=== PATIENT | female | born 1945 | race Caucasian/White ===

== ENCOUNTER 2017-09-06 09:20 | Outpatient (CLI) | payer MEDICARE, OTHER | END 2017-09-06 09:21 | disposition home or self-care (01) | LOC: BICMAMMO 09:20 | PROVIDERS: ATTEND Radiology Radiation Oncology | DX: Z08 Encounter for follow-up examination after completed treatment for malignant neoplasm (principal); Z85.3 Personal history of malignant neoplasm of breast | CPT/HCPCS: G0204; G0279; 77066 ==

== ENCOUNTER 2018-01-25 09:54 | Outpatient (CLI) | payer MEDICARE, OTHER | END 2018-01-25 09:55 | disposition home or self-care (01) | LOC: BICULT 09:54 | PROVIDERS: ATTEND Urology | DX: N39.41 Urge incontinence (principal) | CPT/HCPCS: 76770; 76856 ==

== ENCOUNTER 2018-10-09 11:04 | Outpatient (CLI) | payer MEDICARE, OTHER | END 2018-10-09 11:05 | disposition home or self-care (01) | LOC: BICMAMMO 11:04 | PROVIDERS: ATTEND Radiology Radiation Oncology | DX: Z12.31 Encounter for screening mammogram for malignant neoplasm of breast (principal); Z85.3 Personal history of malignant neoplasm of breast; Z86.000 Personal history of in-situ neoplasm of breast; Z80.3 Family history of malignant neoplasm of breast | CPT/HCPCS: 77063; 77067 ==

== ENCOUNTER 2018-11-26 08:45 | Outpatient (CLI) | payer MEDICARE, OTHER ==
[2018-11-26] MEDS ORDERED: Gadobenate Dimeglumine 529 MG/1 ML (20ML VIAL) ONE (10:30)
--- NOTE | 2018-11-26 11:52 | MRI ---
MRI Brain W WO Con: 11/26/2018 12:00 AM CLINICAL HISTORY: Brain tumor, benign, follow-up. COMPARISON: 04/02/2018 FINDINGS: Extra axial spaces: Redemonstration of lobular, circumscribed, avidly enhancing extra-axial mass over lying the right cerebral convexity, which measures 4.6 cm craniocaudal, 3 cm transverse, by 4.1 cm AP, grossly stable in volume. Mass demonstrates a broad dural base with an associated dural tail, com patible with meningioma. Smaller, dural based enhancing mass overlying the left parietotemporal convexity is grossly stable at 1.2 x 7 mm, consistent with a small meningioma.. Hemorrhage: None. Ventricular system: Normal in size and morphology for the patient's age. Basal cisterns: Normal. Cerebral parenchyma: Vasogenic edema of the right cerebral hemisphere is similar. There is microvascu lar ischemic disease again noted. Midline shift: Stable minimal leftward bowing of the septum pellucidum. Cerebellum: No acute findings Brainstem: Normal. Paranasal sinuses:Mucosal thickening and retention cyst formation IMPRESSION:Grossly stable extra-axial masses, bilaterally, indicative of meningiomas Transcribed Date/Time: 11/26/2018 12:39 PM
--- NOTE | 2019-01-13 13:19 | MRI ---
MRI CERVICAL SPINE NONCONTRAST: 01/13/2019 HISTORY: 73 year old female with cervical radiculopathy FINDINGS: Vertebral body heights are maintained. Alignment is normal. All of the images are degraded by patient motion. Moderate left-sided facet DJD at C7-T1. Disc space narrowing: Mild at C3-4, moderate at C4-5, and moderate to severe at C5-6 and C6-7 where there are Modic type I and Modic type II changes with multiple endplate irregularities. Broad-based disc-osteophytic bar complex is encroach upon the anterior aspect of the spinal canal at multiple levels. Uncinate process osteophytes encroach upo n neural foramina at multiple levels. Cervical spinal cord is normal in size and signal. C1-2: No central stenosis C2-3: Essentially normal C3-4: Mild to moderate central stenosis. Mild right neural foraminal stenosis. No left neural foramin al stenosis. C4-5: Moderate central stenosis. Severe bilateral neural foraminal stenosis. C5-6: Severe central spinal canal stenosis. Severe bilateral neural foraminal stenosis. C6-7: Moderate to severe central stenosis. Moderate to severe bilateral neural foraminal stenosis. C7-T1: Mild right neural foraminal stenosis. Moderate left neural foraminal stenosis. Mild central st enosis. IMPRESSION: Cervical spondylosis with multilevel degenerative disc disease, including moderately severe, multilev el central spinal canal stenosis, and multilevel neural foraminal stenosis, including severe.
== END 2018-11-26 08:46 | disposition home or self-care (01) ==
LOC: BICMRI 08:45
PROVIDERS: ATTEND Neurological Surgery
DX: M50.10 Cervical disc disorder with radiculopathy, unspecified cervical region (principal); D33.2 Benign neoplasm of brain, unspecified; M47.22 Other spondylosis with radiculopathy, cervical region; M48.02 Spinal stenosis, cervical region; G93.89 Other specified disorders of brain
CPT/HCPCS: 70553; 72141; 82565; A9577

== ENCOUNTER 2019-01-13 14:35 | Emergency (ER) | payer MEDICARE, OTHER ==
[2019-01-13 15:57] LABS: #Eosinphils 0.2 thou/uL (0.0-0.7); #Monocytes 1.2 thou/uL (0.11-0.59); %Basophils 0.1 % (0.0-1.0); %Eosinophils 1.9 % (0.0-10.0); %Lymphocytes 7.2 % (21.0-51.0); %Monocytes 9.2 % (0.0-10.0); %Neutrophils 81.7 % (42.0-75.0); Hemoglobin 14.2 g/dL (12.0-16.0); Mean Corpuscular HGB CONC 32.9 g/dL (32.0-36.0); Mean Corpuscular Hemoglobin 29.9 pg (27.0-31.0); Mean Corpuscular Volume 90.9 fL (78.0-98.0); Mean Platelet Volume 8.9 fL (7.4-10.4); Platelet Count 174 thou/uL (130-400); RBC Distribution Width 13.7 % (11.5-14.5); Red Blood Cell (RBC) Count 4.76 mill/uL (4.20-5.40); White Blood Cell (WBC) Count 13.4 thou/uL (4.8-10.8)
--- NOTE | 2019-01-13 16:15 | ULT ---
LEFT LOWER EXTREMITY VENOUS DOPPLER ULTRASOUND EVALUATION: HISTORY: Left lower extremity pain and swelling and redness. TECHNIQUE: Multiple longitudinal and transverse images of the left lower extremity venous systems obtained using multi hertz linear array transducer. Real-time, color flow and spectral waveform Doppler analysis is used to evaluate the left lower extremity. FINDINGS: Images demonstrates no evidence of acute or old clot seen in the left common femoral, superficial fem oral, femoral profunda, popliteal or posterior tibial veins. The left greater saphenous vein is also patent. IMPRESSION: No evidence of left lower extremity deep venous thrombosis. Transcribed Date/Time: 01/13/2019 4:20 PM
[2019-01-13 16:19] LABS: ALT (SGPT) 17 U/L (8-55); AST (SGOT) 7 U/L (5-34); Alkaline Phosphatase 174 U/L (40-150); Anion Gap 12 mmol/L (10-20); BUN (Urea Nitrogen) 26 mg/dL (9.8-20.1); Bilirubin, Total 0.7 mg/dL (0.2-1.2); Calc. Creatinine Clearance 0 mL/min (70-130); Carbon Dioxide 26 mmol/L (23-31); Chloride 99 mmol/L (98-107); Estimated GFR-MDRD 56; Globulin 2.9 g/dL (2.4-3.5); Glucose 292 mg/dL (83-110); Protein, Total 5.9 g/dL (6.0-8.3); Sodium 134 mmol/L (136-145)
[2019-01-13 16:29] LABS: Potassium 2.9 mmol/L (3.5-5.1)
[2019-01-13] MEDS ORDERED: Potassium Chloride 20 MEQ TAB ONE (17:59)
== END 2019-01-13 18:18 | disposition home or self-care (01) ==
LOC: ERS 14:35
DX: L03.116 Cellulitis of left lower limb (principal); E87.6 Hypokalemia
CPT/HCPCS: 36415; 80053; 85025; 93005

== ENCOUNTER 2019-01-16 16:16 | Inpatient (IN) | payer MEDICARE, OTHER ==
[2019-01-16 17:58] VITALS: BMI 45.7
[2019-01-16] MEDS ORDERED: Dextrose 50% Abboject 50 ML SYRINGE IVP PRN (18:29)
[2019-01-16] MEDS ORDERED: Dextrose 5% in Water 1,000 ML IV PRN (18:29)
[2019-01-16] MEDS ORDERED: TRULICITY SC SCH (18:45)
[2019-01-16] MEDS: Piperacillin/Tazobactam 3.375 GM in Sodium Chloride 0.9% 100 ML IVPB SCH (19:30)
[2019-01-16 20:52] LABS: Band 13 % (5-11); Eosinophils 3 % (0-10); Hemoglobin 13.9 g/dL (12.0-16.0); Lymphocytes 7 % (21-51); MDiff Complete? YES; Mean Corpuscular Hemoglobin 30.5 pg (27.0-31.0); Mean Corpuscular Volume 89.7 fL (78.0-98.0); Mean Platelet Volume 9.5 fL (7.4-10.4); Monocytes 6 % (0-10); Myelocyte 2 % (0-0); Neutrophil 69 % (42-75); Platelet Count 158 thou/uL (130-400); RBC Distribution Width 13.6 % (11.5-14.5); Red Blood Cell (RBC) Count 4.54 mill/uL (4.20-5.40); White Blood Cell (WBC) Count 17.8 thou/uL (4.8-10.8)
[2019-01-16 20:54] LABS: Lactic Acid 2.2 mmol/L (0.5-2.2)
[2019-01-16 20:58] LABS: ALT (SGPT) 10 U/L (8-55); AST (SGOT) 6 U/L (5-34); Albumin 2.6 g/dL (3.4-4.8); Alkaline Phosphatase 190 U/L (40-150); Anion Gap 14 mmol/L (10-20); BUN (Urea Nitrogen) 25 mg/dL (9.8-20.1); Bilirubin, Total 0.7 mg/dL (0.2-1.2); Calc. Creatinine Clearance 92 mL/min (70-130); Calcium 8.5 mg/dL (7.8-10.44); Carbon Dioxide 23 mmol/L (23-31); Chloride 100 mmol/L (98-107); Estimated GFR-MDRD 61; Globulin 2.9 g/dL (2.4-3.5); Glucose 283 mg/dL (83-110); Potassium 3.9 mmol/L (3.5-5.1); Protein, Total 5.5 g/dL (6.0-8.3); Sodium 133 mmol/L (136-145)
[2019-01-16] MEDS: Vancomycin HCl 1.5 GM in Sodium Chloride 0.9% 250 ML 300 ML IVPB SCH (21:42)
[2019-01-16] MEDS: Insulin Regular 300 UNITS/3 ML VIAL SC PRN (21:43)
--- NOTE | 2019-01-16 23:20 | ULT ---
EXAM: Left lower extremity venous Doppler HISTORY: left lower extremity edema and pain FINDINGS: Grayscale, color-flow, Doppler evaluation, spectral analysis of the left lower extremity venous struc tures is performed with 2-D imaging. The left common femoral, superficial femoral, popliteal, posterior tibial, proximal greater saphenous and profunda femoral veins are imaged. The distal left lower extremity superficial femoral vein as well as popliteal veins are unable to be visualized on grayscale imaging which limits evaluation for nonocclusive DVT. There is flow seen within the distal left lower extremity superficial femoral vein as well as the popliteal vein. There is otherwise normal luminal compressibility, flow, and augmentation in the visualized deep veno us structures of the left lower extremity. Subcutaneous edema is present. IMPRESSION: Limited evaluation of the distal left superficial femoral vein as well as popliteal vein on grayscale imaging which limits evaluation for nonocclusive thrombus, but there is no evidence of occlusive thrombus at these levels given presence of flow. There is otherwise no evidence of a DVT involving th e remaining visualized deep venous structures left lower extremity.
--- NOTE | 2019-01-17 01:07 | HP ---
CHIEF COMPLAINT: Cellulitis of left leg. HISTORY OF PRESENT ILLNESS: This is a 73-year-old female, who presented today for a left lower leg cellulitis. The patient initially denied injury, though she reports she fell out of bed on Sunday and states that evening the swelling started in the lower leg. She went to [facility] ER for rule out DVT. DVT was negative and placed on clindamycin for cellulitis. She states over the past few days, the clindamycin has not been working and reports the pain to the leg has increased with elevated blood sugars and swelling. She presented to the office this afternoon and has failed outpatient therapy, therefore requiring admission. PAST MEDICAL HISTORY: Includes uncontrolled type 2 diabetes with noncompliance, history of urinary tract infections with urinary incontinence, that is being controlled by another physician. She has obesity with hypertension, high cholesterol, and vitamin D deficiency. PAST SURGICAL HISTORY: Unknown. SOCIAL HISTORY: The patient lives by herself out in [place]. 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. She denies ever smoking or drinking. ALLERGIES: THE PATIENT HAS NO KNOWN DRUG ALLERGIES AND NO KNOWN FOOD ALLERGIES. MEDICATIONS: The patient takes Myrbetriq 50 mg oral tablet extended release once a day. She takes oxybutynin 15 mg oral tablet extended release once a day. She takes Januvia 100 mg one tablet daily for her diabetes. She takes metoprolol extended-release 100 mg once a day for blood pressure. She takes one tablet of metformin 1000 mg by mouth daily. She takes one vitamin D capsule weekly and she also does Trulicity every Sunday 0.75 mg subcutaneously. REVIEW OF SYSTEMS: CONSTITUTIONAL: Includes generalized fatigue and body aches with left lower leg pain. HEENT: Had no complaints. RESPIRATORY: Denied any complaints. CARDIOVASCULAR: Denied any complaints. GI: Denied any abdominal pain, nausea, or vomiting. : She does have continued urinary problems with urinary frequency, it is controlled on medication. NEUROMUSCULAR: She complains of numbness and swelling to the left lower leg where the cellulitis is present. Denies any dizziness or fainting. SKIN: She has the cellulitis noted from the thigh down into the foot intermittently with increasing swelling over the past week. Denies any anxiety or depression. PHYSICAL EXAMINATION: VITAL SIGNS: The patient is 56 inches, she is 223 pounds. Her BMI is 50. Blood pressure present today was 100/80, temperature is 98.4 degrees Fahrenheit, pulse was 80 beats per minute, and she was 98% on room air. GENERAL: Pleasant, obese. She was in pain with ambulation. She was well dressed. HEENT: Eyes are PERRLA. Her tympanic membranes are clear. Her pharynx was normal. NECK: There was no lymphadenopathy. LUNGS: Clear bilaterally. Normal S1, S2 with no murmurs. Rhythm is regular. BREAST: Deferred. EXTREMITIES: Warm and well perfused. Cap refill is less than 2. ABDOMEN: Positive bowel sounds. Soft, nondistended, nontender. MUSCULOSKELETAL: Gait was assisted with her cane. EXTREMITIES: The left lower foot presented with erythema and swelling that extended upward above the knee detention above the thigh and significant tenderness to the area. The erythema around the knee extended approximately 8 to 10 inches in diameter, was warm to touch with swelling. Pedal pulse was intact. Edema was noted to left lower leg +3, the right leg was +1. SKIN: Very tight to the left lower extremity. The skin to the knee had an orange peel texture. MENTAL EXAMINATION: The patient was alert and oriented to person, place, and time. She demonstrated good judgment. Her gait was intact, steady with her cane. Cranial nerves were intact. Sensory was intact and noted to the extremities. The patient denies any abnormal behaviors during the course of the cellulitis or any problems with forgetfulness. LABORATORY DATA: Lab work and x-rays are pending at the time of dictation. ASSESSMENT: 1. Left lower leg cellulitis with failed outpatient treatment. 2. Type 2 diabetes with noncompliance. 3. Hypertension. 4. High cholesterol. 5. Morbid obesity. 6. Noncompliance to medication regimen. PLAN: Plan of care includes labs. DVT, rule out ultrasound, IV for antibiotics , pain management if needed. Wound care consult. Diabetic diet. Ambulation as needed in room. Glucose checks before meals and at bedtime with sliding scale. Serial re-evaluation. Job ID: [id number] [id number]
[2019-01-17] MEDS: Piperacillin/Tazobactam 3.375 GM in Sodium Chloride 0.9% 100 ML IVPB SCH ×5 (01:51→23:14)
[2019-01-17 05:57] LABS: Bilirubin Negative (Negative); Blood, Urine Negative (Negative); Clarity CLOUDY (Clear); Glucose, Urine (Dipstick) Negative (Negative); Leukocyte Negative (Negative); Nitrite Negative (Negative); Protein, Urine (Dipstick) Negative (Neg-Trace)
[2019-01-17 05:58] LABS: Bacteria/HPF None Seen HPF (None Seen); Hyaline Casts/LPF 0-3 HYALINE CAST LPF (0-3 Hyaline); Pathc Cast-AUWi Flag 0.68 (0-2.49); WBC/HPF 0-3 HPF (0-3)
[2019-01-17 06:21] LABS: Yeast-AUWi Flag 74.2 (0-25.0)
[2019-01-17 06:23] LABS: RBC/HPF 0-3 HPF (0-3); Yeast-All Forms None Seen HPF (None Seen)
[2019-01-17] MEDS: Acetaminophen 500 MG TAB PO PRN (06:26)
[2019-01-17] MEDS: Insulin Regular 300 UNITS/3 ML VIAL SC PRN ×4 (06:26→20:51)
[2019-01-17] MEDS: metFORMIN 500 MG TAB PO SCH (09:24)
[2019-01-17] MEDS: Alogliptin 25 MG TAB PO SCH (09:25)
[2019-01-17] MEDS: Vancomycin HCl 1.5 GM in Sodium Chloride 0.9% 250 ML 300 ML IVPB SCH ×2 (09:25→19:55)
[2019-01-17] MEDS: TRULICITY SC SCH (09:26)
[2019-01-17] MEDS: Oxybutynin ER 5 MG TAB PO SCH (09:38)
[2019-01-18] MEDS: Piperacillin/Tazobactam 3.375 GM in Sodium Chloride 0.9% 100 ML IVPB SCH ×4 (05:20→23:33)
[2019-01-18] MEDS: Acetaminophen 500 MG TAB PO PRN (06:22)
[2019-01-18] MEDS: Insulin Regular 300 UNITS/3 ML VIAL SC PRN ×2 (06:23→11:39)
[2019-01-18 07:06] LABS: #Basophils 0.1 thou/uL (0.0-0.2); #Eosinphils 0.2 thou/uL (0.0-0.7); #Lymphocytes 1.4 thou/uL (1.20-3.40); #Monocytes 1.1 thou/uL (0.11-0.59); #Neutrophils 10.7 thou/uL (1.40-6.50); %Basophils 0.4 % (0.0-1.0); %Eosinophils 1.4 % (0.0-10.0); %Lymphocytes 10.2 % (21.0-51.0); %Monocytes 8.1 % (0.0-10.0); Hemoglobin 13.6 g/dL (12.0-16.0); Mean Corpuscular HGB CONC 33.1 g/dL (32.0-36.0); Mean Corpuscular Hemoglobin 29.9 pg (27.0-31.0); Mean Corpuscular Volume 90.5 fL (78.0-98.0); Mean Platelet Volume 8.8 fL (7.4-10.4); Platelet Count 144 thou/uL (130-400); RBC Distribution Width 13.7 % (11.5-14.5); Red Blood Cell (RBC) Count 4.54 mill/uL (4.20-5.40); White Blood Cell (WBC) Count 13.4 thou/uL (4.8-10.8)
[2019-01-18 07:23] LABS: Vancomycin, Trough 19.6 ug/mL
[2019-01-18] MEDS: Vancomycin HCl 1.5 GM in Sodium Chloride 0.9% 250 ML 300 ML IVPB SCH ×2 (08:35→20:32)
[2019-01-18] MEDS: metFORMIN 500 MG TAB PO SCH (08:35)
[2019-01-18] MEDS: Oxybutynin ER 5 MG TAB PO SCH (08:36)
[2019-01-18] MEDS: Alogliptin 25 MG TAB PO SCH (08:36)
[2019-01-19] MEDS: Piperacillin/Tazobactam 3.375 GM in Sodium Chloride 0.9% 100 ML IVPB SCH ×3 (06:22→17:24)
[2019-01-19 06:27] LABS: Anion Gap 11 mmol/L (10-20); BUN (Urea Nitrogen) 11 mg/dL (9.8-20.1); Calc. Creatinine Clearance 102 mL/min (70-130); Calcium 8.1 mg/dL (7.8-10.44); Carbon Dioxide 25 mmol/L (23-31); Chloride 105 mmol/L (98-107); Estimated GFR-MDRD 68; Glucose 132 mg/dL (83-110); Potassium 4.1 mmol/L (3.5-5.1); Sodium 137 mmol/L (136-145)
[2019-01-19 06:58] LABS: Band 27 % (5-11); Hemoglobin 13.1 g/dL (12.0-16.0); Lymphocytes 10 % (21-51); MDiff Complete? YES; Mean Corpuscular HGB CONC 33.3 g/dL (32.0-36.0); Mean Corpuscular Hemoglobin 29.8 pg (27.0-31.0); Mean Corpuscular Volume 89.3 fL (78.0-98.0); Mean Platelet Volume 8.8 fL (7.4-10.4); Monocytes 5 % (0-10); Neutrophil 58 % (42-75); Platelet Count 113 thou/uL (130-400); Platelet Morphology Comment Appears Decreased; RBC Distribution Width 13.7 % (11.5-14.5); Red Blood Cell (RBC) Count 4.42 mill/uL (4.20-5.40); White Blood Cell (WBC) Count 12.4 thou/uL (4.8-10.8)
[2019-01-19] MEDS: metFORMIN 500 MG TAB PO SCH (08:50)
[2019-01-19] MEDS: Oxybutynin ER 5 MG TAB PO SCH (08:50)
[2019-01-19] MEDS: Alogliptin 25 MG TAB PO SCH (08:50)
[2019-01-19] MEDS: Vancomycin HCl 1.5 GM in Sodium Chloride 0.9% 250 ML 300 ML IVPB SCH ×2 (08:51→19:31)
[2019-01-19] MEDS: Clindamycin/D5W 600 MG in Premix Bag 1 BAG IVPB SCH ×3 (12:15→23:25)
[2019-01-19] MEDS: Insulin Regular 300 UNITS/3 ML VIAL SC PRN ×3 (12:17→20:32)
[2019-01-19] MEDS: HYDROcodone/Acetaminophen 5/325 mg Tablet PO PRN (16:25)
[2019-01-19 19:26] LABS: Vancomycin, Trough 31.3 ug/mL
[2019-01-20] MEDS: Piperacillin/Tazobactam 3.375 GM in Sodium Chloride 0.9% 100 ML IVPB SCH ×5 (00:05→23:46)
[2019-01-20] MEDS: Clindamycin/D5W 600 MG in Premix Bag 1 BAG IVPB SCH ×4 (05:07→23:13)
[2019-01-20 05:35] LABS: #Eosinphils 0.1 thou/uL (0.0-0.7); #Lymphocytes 1.3 thou/uL (1.20-3.40); #Monocytes 0.8 thou/uL (0.11-0.59); %Basophils 0.1 % (0.0-1.0); %Eosinophils 1.4 % (0.0-10.0); %Monocytes 8.1 % (0.0-10.0); %Neutrophils 77.4 % (42.0-75.0); Mean Corpuscular HGB CONC 34.3 g/dL (32.0-36.0); Mean Corpuscular Hemoglobin 30.7 pg (27.0-31.0); Mean Corpuscular Volume 89.5 fL (78.0-98.0); Mean Platelet Volume 9.4 fL (7.4-10.4); Platelet Count 92 thou/uL (130-400); RBC Distribution Width 13.8 % (11.5-14.5); Red Blood Cell (RBC) Count 4.25 mill/uL (4.20-5.40); White Blood Cell (WBC) Count 10.3 thou/uL (4.8-10.8)
[2019-01-20 07:30] LABS: Vancomycin, Random 20.7 ug/mL (See Comment)
[2019-01-20] MEDS ORDERED: Vancomycin HCl 1.5 GM in Sodium Chloride 0.9% 250 ML 300 ML IVPB SCH ×2 (08:00→10:30)
[2019-01-20] MEDS: Alogliptin 25 MG TAB PO SCH (08:33)
[2019-01-20] MEDS: Oxybutynin ER 5 MG TAB PO SCH (08:33)
[2019-01-20] MEDS: metFORMIN 500 MG TAB PO SCH (08:33)
[2019-01-20] MEDS: Enoxaparin Sodium 40 MG/0.4 ML SYRINGE SC SCH (08:34)
[2019-01-20] MEDS ORDERED: ISOVUE-370 76%-LOCM 1 ML ONE (09:52)
--- NOTE | 2019-01-20 11:59 | CT ---
CT OF THE LEFT KNEE WITH IV CONTRAST: DATE: 05/31/2019. PROVIDED CLINICAL HISTORY: Cellulitis. FINDINGS: There is extensive reticulation of the subcutaneous adipose layer circumferentially about the distal thigh, knee, and visualized proximal foreleg. There is a large rim-enhancing fluid collection present within the subcutaneous adipose layer at the anteromedial aspect of the distal thigh, knee, and proximal foreleg. This measures approximately 14. 4 cm in craniocaudal dimension and approximately 5.3 x 11.9 cm in greatest transverse dimension. The re is an additional fluid collection present at the medial aspect of the proximal foreleg measuring a bout 2.5 cm that does not appear to communicate with the larger fluid collection. This is located ap proximately 6 cm inferior to the knee joint bimedially. The amount of fluid within the knee joint appears physiologic. There is no evidence for fracture or other acute osseous abnormality. The regional major vascular structures appear unremarkable. Region al muscular density appears normal. There is no evidence for density alteration within the intramusc ular fascial planes. There is no evidence for soft tissue gas. IMPRESSION: 1. Diffuse reticulation of the regional subcutaneous adipose that are compatible with the provided c linical history of cellulitis. 2. Large rim enhancing fluid collection at the anterior aspect of the knee, compatible with abscess in the appropriate clinical context. Additional smaller fluid collection at the medial aspect of the proximal foreleg as above. POS: OFF
[2019-01-20] MEDS: Insulin Regular 300 UNITS/3 ML VIAL SC PRN (12:07)
[2019-01-20] MEDS: Vancomycin HCl 1.5 GM in Sodium Chloride 0.9% 250 ML 300 ML IVPB SCH (19:53)
[2019-01-21] MEDS: Clindamycin/D5W 600 MG in Premix Bag 1 BAG IVPB SCH ×4 (05:29→23:30)
[2019-01-21] MEDS: Piperacillin/Tazobactam 3.375 GM in Sodium Chloride 0.9% 100 ML IVPB SCH ×3 (06:15→17:58)
[2019-01-21 06:22] LABS: #Eosinphils 0.3 thou/uL (0.0-0.7); #Lymphocytes 1.1 thou/uL (1.20-3.40); %Basophils 0.3 % (0.0-1.0); %Eosinophils 2.7 % (0.0-10.0); %Lymphocytes 12.1 % (21.0-51.0); %Monocytes 10.2 % (0.0-10.0); %Neutrophils 74.6 % (42.0-75.0); Hemoglobin 12.2 g/dL (12.0-16.0); Mean Corpuscular Hemoglobin 29.8 pg (27.0-31.0); Mean Corpuscular Volume 90.3 fL (78.0-98.0); Mean Platelet Volume 9.4 fL (7.4-10.4); Platelet Count 86 thou/uL (130-400); RBC Distribution Width 13.8 % (11.5-14.5); Red Blood Cell (RBC) Count 4.11 mill/uL (4.20-5.40); White Blood Cell (WBC) Count 9.4 thou/uL (4.8-10.8)
[2019-01-21 06:31] LABS: ALT (SGPT) 10 U/L (8-55); AST (SGOT) 10 U/L (5-34); Albumin 2.3 g/dL (3.4-4.8); Alkaline Phosphatase 144 U/L (40-150); Anion Gap 10 mmol/L (10-20); BUN (Urea Nitrogen) 10 mg/dL (9.8-20.1); Bilirubin, Total 0.5 mg/dL (0.2-1.2); Calc. Creatinine Clearance 81 mL/min (70-130); Calcium 7.8 mg/dL (7.8-10.44); Carbon Dioxide 24 mmol/L (23-31); Chloride 107 mmol/L (98-107); Estimated GFR-MDRD 52; Globulin 2.8 g/dL (2.4-3.5); Glucose 134 mg/dL (83-110); Potassium 3.9 mmol/L (3.5-5.1); Protein, Total 5.1 g/dL (6.0-8.3); Sodium 137 mmol/L (136-145)
[2019-01-21] MEDS: metFORMIN 500 MG TAB PO SCH (08:35)
[2019-01-21] MEDS: Alogliptin 25 MG TAB PO SCH (08:35)
[2019-01-21] MEDS: Enoxaparin Sodium 40 MG/0.4 ML SYRINGE SC SCH (08:35)
[2019-01-21] MEDS: Oxybutynin ER 5 MG TAB PO SCH (10:02)
[2019-01-21] MEDS: Insulin Regular 300 UNITS/3 ML VIAL SC PRN (12:34)
--- NOTE | 2019-01-21 16:17 | CON ---
DATE OF CONSULTATION: 01/21/2019 This is Patricia Cabrera PA-C dictating a report for Giovany Martinez MD. CONSULTING PHYSICIAN: Giovany Martinez MD REASON FOR CONSULTATION: Left knee infection. HISTORY OF PRESENT ILLNESS: This is a 73-year-old female, who was admitted to the hospital on January 16, 2019 for left lower leg cellulitis. She has been on IV antibiotics up until this point. Per the patient's history at bedside, she states that she did fall several weeks ago, landing on her knee and states that the swelling started. She initially went to the [facility] ER for rule out DVT. She was placed on clindamycin for cellulitis. Unfortunately, throughout her last 5 days in the hospital this has not resolved with IV antibiotics and we have been consulted for this reason. She denies any fever or chills. She denies history of prior knee surgeries or knee injections. PAST MEDICAL HISTORY: Includes type 2 diabetes, urinary tract infections with urinary incontinence, hypertension, hyperlipidemia, vitamin D deficiency. PAST SURGICAL HISTORY: Unknown. SOCIAL HISTORY: The patient lives alone. She is an independent ambulator. She works part-time. Denies history of smoking or drinking. FAMILY HISTORY: Reviewed and noncontributory. REVIEW OF SYSTEMS: A 10-point review of systems conducted and otherwise negative, except for stated above. PHYSICAL EXAMINATION: VITAL SIGNS: Temperature of 97.9, pulse of 76, respiratory rate of 22, O2 saturation of 97% on 2 L nasal cannula, blood pressure of 120/73. GENERAL: The patient is awake and alert. She is sitting up in bed. She is hard of hearing, but is pleasant and cooperative with exam today. HEENT: Head is normocephalic and atraumatic. NECK: Supple. Trachea midline. HEART: Regular rate and rhythm. RESPIRATORY: Clear to auscultation bilaterally. Nonlabored. EXTREMITIES: The left lower extremity is evaluated. There is a large amount of erythema overlying the anterior surface of the knee. There is also a large amount of prepatellar swelling. This is fluctuant. The patient is able to flex and extend at the knee joint. Distal neurovascular status is intact. Remainder of extremities also evaluated and no other acute findings were visualized. LABORATORY DATA: Reviewed including CBC from today, 01/21, shows a white blood cell count of 9.4, hemoglobin of 12.2, hematocrit of 37.1, and a platelet count of 86. IMAGING STUDIES: CT scan reviewed with Dr. Martinez as well as myself shows evidence of a large rim enhancing fluid collection in the anterior aspect of the knee compatible with a large abscess. There is also subcutaneous adipose that is compatible with history of cellulitis. ASSESSMENT: Left knee prepatellar septic bursitis. PLAN: At this time, the patient has been n.p.o. since noon. We would like to take her to the operating room in order to drain this fluid collection from her knee. We will continue her n.p.o. status and book her for the OR this evening. Following Surgery, we will likely pack her wound and have her seen by Wound Care to further address wound care concerns. She will continue her IV antibiotic regimen. We will plan for cultures in the operating room to further identify an organism and treat. We have discussed this plan of care along with risks and benefits of surgical procedure. She verbalized understanding and is amenable to this plan of care. Job ID: [id number]
[2019-01-21] MEDS ORDERED: Neomycin-Polymyxin 1 ML AMP ONE (17:23)
[2019-01-21] MEDS ORDERED: Fentanyl 100 MCG/2 ML VIAL ONE (18:06)
[2019-01-21] MEDS ORDERED: Promethazine HCl 25 MG/ML VIAL SLOW IVP PRN (20:15)
[2019-01-21] MEDS ORDERED: Ondansetron HCl/PF 4 MG/2 ML Vial IVP PRN (20:15)
[2019-01-21] MEDS ORDERED: Promethazine HCl 25 MG/ML VIAL IM PRN (20:15)
[2019-01-21] MEDS: Vancomycin HCl 1.5 GM in Sodium Chloride 0.9% 250 ML 300 ML IVPB SCH (20:56)
[2019-01-21] MEDS: HYDROcodone/Acetaminophen 5/325 mg Tablet PO PRN (22:26)
[2019-01-22] MEDS: Piperacillin/Tazobactam 3.375 GM in Sodium Chloride 0.9% 100 ML IVPB SCH ×4 (00:17→18:22)
[2019-01-22] MEDS: Clindamycin/D5W 600 MG in Premix Bag 1 BAG IVPB SCH ×3 (05:30→17:10)
[2019-01-22] MEDS: Enoxaparin Sodium 40 MG/0.4 ML SYRINGE SC SCH (08:46)
[2019-01-22] MEDS: Alogliptin 25 MG TAB PO SCH (08:48)
[2019-01-22] MEDS: metFORMIN 500 MG TAB PO SCH (08:48)
[2019-01-22] MEDS: Oxybutynin ER 5 MG TAB PO SCH (09:10)
[2019-01-22] MEDS: HYDROcodone/Acetaminophen 5/325 mg Tablet PO PRN (09:40)
[2019-01-22] MEDS: Insulin Regular 300 UNITS/3 ML VIAL SC PRN (11:27)
[2019-01-22] MEDS ORDERED: Aspirin Chewable 81 MG TAB PO SCH (14:45)
[2019-01-22 20:56] LABS: Vancomycin, Trough 17.9 ug/mL
[2019-01-22] MEDS: Vancomycin HCl 1.5 GM in Sodium Chloride 0.9% 250 ML 300 ML IVPB SCH (21:02)
--- NOTE | 2019-01-22 21:55 | CON ---
DATE OF CONSULTATION: 01/22/2019 REASON FOR CONSULTATION: Left prepatellar bursitis. HISTORY OF PRESENT ILLNESS: A 73-year-old with history of type 2 diabetes, prior UTIs, hypertension, who apparently sustained a fall a few months ago and injured her left prepatellar area. She developed an area of hematoma there, it got better and then more recently started getting painful again and swollen, went to the emergency room. DVT workup was negative. She was started on clindamycin orally. It did not help and she came back to see her doctor, Dr. Fields, was admitted to the hospital. There was a quite obvious inflammatory process in the prepatellar area. CT scan showed findings consistent with prepatellar bursitis with surrounding cellulitis. She underwent surgical debridement, has a negative pressure device in place. She has significant hearing impairment. Denies headaches, visual symptoms, sore throat, odynophagia, or dysphagia. No back pain. No dyspnea or cough. No chest pain. No abdominal pain or diarrhea. No genitourinary symptoms. No other joint symptoms. PAST MEDICAL HISTORY: Obesity, type 2 diabetes, UTIs, urinary incontinence, hypertension, and hyperlipidemia. PAST SURGICAL HISTORY: Negative. SOCIAL HISTORY: Lives in [place] by herself. 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 Does not smoke cigarettes. No drug use. No family members around. ALLERGIES: NONE. CURRENT MEDICATIONS: 1. Tylenol. 2. [place]. 3. Alogliptin. 4. Aspirin. 5. Clindamycin. 6. Insulin. 7. Metoprolol. 8. Zosyn. 9. Vancomycin. PHYSICAL EXAMINATION: VITAL SIGNS: Temperature max 98.4, blood pressure 130/70, pulse 76, respirations 20, O2 saturation 95. SKIN: Shows the left prepatellar region with a negative pressure dressing and the erythema has markedly improved. There is an incision with wound with fresh red tissue at the base, measures 2 x 3 cm. No lymphadenopathy. HEENT: Noncontributory. NECK: Supple. LUNGS: Symmetric, clear breath sounds. HEART: S1, S2. Regular rate without murmurs. ABDOMEN: Soft, not distended or tender. No ascites. No bladder distention. Voiding in the toilet. EXTREMITIES: Pulses are 1+ in dorsalis pedis. Evidence of stasis dermatitis and venous insufficiency. NEUROLOGIC: Nonfocal including cognitive function. She has quite pronounced hearing impairment. LABORATORY DATA: White cell count 17, down to 9.4, hemoglobin 12, platelets 86,000. Chemistry; protein 5.1, albumin 2.3. Urinalysis was fairly normal. Vancomycin trough was 20, the last one checked. Gram stain from the left prepatellar region with no organisms seen. ASSESSMENT: Previous injury to the left prepatellar area in the setting of type 2 diabetes, now prepatellar bursitis status post I and D with a negative pressure wound dressing. DISCUSSION: The usual pathogen is Staphylococcus aureus including possibility of MRSA streptococci including group B Streptococcus, possible as well and less commonly gram-negative rods. After I and D, we will wait on the identification of susceptibility profile and then hopefully transition to oral antimicrobial therapy for discharge planning. Job ID: [id number]
--- NOTE | 2019-01-22 22:47 | OP ---
DATE OF PROCEDURE: 01/21/2019 PREOPERATIVE DIAGNOSIS: Septic prepatellar bursitis, left knee. POSTOPERATIVE DIAGNOSIS: Septic prepatellar bursitis, left knee. PROCEDURE PERFORMED: Incision and drainage of left septic prepatellar bursitis. ANESTHESIA: General. TOURNIQUET TIME: 11 minutes at 300 mmHg. IMPLANTS: None. DRAINS: None. SPECIMEN: Swab sent for Gram stain, culture, and sensitivity. COMPLICATIONS: None. OUTCOME: Satisfactory incision and drainage of septic prepatellar bursa. INDICATIONS FOR PROCEDURE: The patient is a 73-year-old lady who was admitted to the hospital on January 16, 2019, for a left knee and lower leg cellulitis. The patient has been receiving IV antibiotics, but continues to have pain in the knee and swelling. She states that several weeks prior to admission, she fell and landed on the point of her knee and this started the swelling. She has been on clindamycin and then over the last 5 days was started on IV antibiotics as well. Orthopedic consultation requested due to the ongoing knee pain. Evaluation shows an obviously septic prepatellar bursitis. A previously done CT scan also shows fluid collection in this prepatellar bursa. The patient now to undergo incision and drainage. Informed consent has been obtained, I believe all questions answered. DESCRIPTION OF PROCEDURE: After the induction of general anesthesia, the patient was positioned supine on the OR table. Then, a sterile prep and drape was performed of the left lower extremity. Next, a vertical incision was made just superior to the patella. Once the skin was incised, copious volumes of purulent material came out from the prepatellar bursa. This was under pressure. Once fully drained, the incision was further lengthened to allow for inspection of the bursa. A curette was used to remove the lining of the bursa and remove any dysvascular tissue. Once performed, 5 L of normal saline with Pulsavac was irrigated through the prepatellar bursa. At the completion of this, the wound was packed open due to the severity of the infection, this with a Kerlix roll. A Kerlix and Red wrap dressing applied to the knee and then the patient transferred to recovery room in stable condition. It should be noted that prior to the skin incision, the limb was elevated and then tourniquet inflated to 300 mmHg. The tourniquet was let down at the end of dressing with a total time of 11 minutes. Job ID: [id number]
[2019-01-23] MEDS: Piperacillin/Tazobactam 3.375 GM in Sodium Chloride 0.9% 100 ML IVPB SCH ×4 (00:47→20:05)
[2019-01-23] MEDS: Clindamycin/D5W 600 MG in Premix Bag 1 BAG IVPB SCH ×4 (00:53→18:16)
[2019-01-23 06:22] LABS: #Eosinphils 0.4 thou/uL (0.0-0.7); #Lymphocytes 1.8 thou/uL (1.20-3.40); #Neutrophils 5.8 thou/uL (1.40-6.50); %Basophils 0.3 % (0.0-1.0); %Eosinophils 4.1 % (0.0-10.0); %Lymphocytes 20.5 % (21.0-51.0); %Neutrophils 64.1 % (42.0-75.0); Hemoglobin 11.9 g/dL (12.0-16.0); Mean Corpuscular HGB CONC 34.2 g/dL (32.0-36.0); Mean Corpuscular Hemoglobin 30.9 pg (27.0-31.0); Mean Corpuscular Volume 90.4 fL (78.0-98.0); Mean Platelet Volume 8.4 fL (7.4-10.4); Platelet Count 111 thou/uL (130-400); Red Blood Cell (RBC) Count 3.85 mill/uL (4.20-5.40)
[2019-01-23 06:38] LABS: Anion Gap 9 mmol/L (10-20); BUN (Urea Nitrogen) 9 mg/dL (9.8-20.1); Calc. Creatinine Clearance 77 mL/min (70-130); Calcium 7.7 mg/dL (7.8-10.44); Carbon Dioxide 25 mmol/L (23-31); Chloride 109 mmol/L (98-107); Estimated GFR-MDRD 49; Glucose 106 mg/dL (83-110); Potassium 3.9 mmol/L (3.5-5.1); Sodium 139 mmol/L (136-145)
[2019-01-23] MEDS: metFORMIN 500 MG TAB PO SCH (08:54)
[2019-01-23] MEDS: Alogliptin 25 MG TAB PO SCH (08:54)
[2019-01-23] MEDS: Aspirin Chewable 81 MG TAB PO SCH (08:55)
[2019-01-23] MEDS: Enoxaparin Sodium 40 MG/0.4 ML SYRINGE SC SCH (08:56)
[2019-01-23] MEDS: Oxybutynin ER 5 MG TAB PO SCH (11:34)
[2019-01-23] MEDS: Vancomycin HCl 1.5 GM in Sodium Chloride 0.9% 250 ML 300 ML IVPB SCH (21:14)
[2019-01-24] MEDS: Clindamycin/D5W 600 MG in Premix Bag 1 BAG IVPB SCH ×3 (00:40→12:06)
[2019-01-24] MEDS: Piperacillin/Tazobactam 3.375 GM in Sodium Chloride 0.9% 100 ML IVPB SCH ×4 (01:27→19:48)
[2019-01-24 05:24] LABS: #Basophils 0.1 thou/uL (0.0-0.2); #Eosinphils 0.3 thou/uL (0.0-0.7); #Lymphocytes 1.9 thou/uL (1.20-3.40); #Neutrophils 6.9 thou/uL (1.40-6.50); %Basophils 0.6 % (0.0-1.0); %Eosinophils 2.6 % (0.0-10.0); %Monocytes 9.8 % (0.0-10.0); Hemoglobin 11.6 g/dL (12.0-16.0); Mean Corpuscular HGB CONC 32.4 g/dL (32.0-36.0); Mean Corpuscular Hemoglobin 29.2 pg (27.0-31.0); Mean Corpuscular Volume 89.9 fL (78.0-98.0); Mean Platelet Volume 8.5 fL (7.4-10.4); Platelet Count 134 thou/uL (130-400); RBC Distribution Width 14.1 % (11.5-14.5); Red Blood Cell (RBC) Count 3.96 mill/uL (4.20-5.40); White Blood Cell (WBC) Count 10.1 thou/uL (4.8-10.8)
[2019-01-24 05:37] LABS: Anion Gap 8 mmol/L (10-20); BUN (Urea Nitrogen) 11 mg/dL (9.8-20.1); Calc. Creatinine Clearance 78 mL/min (70-130); Calcium 7.9 mg/dL (7.8-10.44); Carbon Dioxide 26 mmol/L (23-31); Chloride 108 mmol/L (98-107); Estimated GFR-MDRD 50; Glucose 103 mg/dL (83-110); Potassium 3.9 mmol/L (3.5-5.1); Sodium 138 mmol/L (136-145)
[2019-01-24] MEDS: Aspirin Chewable 81 MG TAB PO SCH (08:53)
[2019-01-24] MEDS: Alogliptin 25 MG TAB PO SCH (08:53)
[2019-01-24] MEDS: Enoxaparin Sodium 40 MG/0.4 ML SYRINGE SC SCH (08:54)
[2019-01-24] MEDS: metFORMIN 500 MG TAB PO SCH (08:54)
[2019-01-24] MEDS: TRULICITY SC SCH (08:57)
[2019-01-24] MEDS: Oxybutynin ER 5 MG TAB PO SCH (12:11)
[2019-01-24] MEDS: HYDROcodone/Acetaminophen 5/325 mg Tablet PO PRN (13:56)
[2019-01-24] MEDS ORDERED: Clindamycin 150 MG CAP PO SCH (15:00)
[2019-01-24 16:03] VITALS: BP 129/70; TEMP 97.8
[2019-01-24] MEDS ORDERED: Sulfameth/Trimethoprim DS 800-160mg TAB PO SCH (21:00)
== END 2019-01-24 18:43 | disposition home health service (06) | DRG 501 ==
LOC: T4-B 16:40
PROVIDERS: ADMIT Specialist; ATTEND Specialist
PROC: 0M9P0ZZ Drainage of Left Knee Bursa and Ligament, Open Approach (ICD-10-PCS; principal; 2019-01-21)
DX: M71.062 Abscess of bursa, left knee (principal); E66.2 Morbid (severe) obesity with alveolar hypoventilation; Z68.42 Body mass index [BMI] 45.0-49.9, adult; L03.116 Cellulitis of left lower limb; M71.162 Other infective bursitis, left knee; I10 Essential (primary) hypertension; E11.9 Type 2 diabetes mellitus without complications; E78.5 Hyperlipidemia, unspecified; E56.9 Vitamin deficiency, unspecified; R32 Unspecified urinary incontinence; Z91.14 Patient's other noncompliance with medication regimen; Z87.440 Personal history of urinary (tract) infections; Z91.81 History of falling; Z79.2 Long term (current) use of antibiotics; Z79.82 Long term (current) use of aspirin; Z79.4 Long term (current) use of insulin; Z79.899 Other long term (current) drug therapy
CPT/HCPCS: 36415; 36416; 80048; 80053; 80202; 81001; 83605; 85025; 87040; 87070; 87077; 87086; 87186; 87205; 93005; 99213; G0463; J1650; J1815; J2543; J3010; J3370; J3490; J7050; Q9966

== ENCOUNTER 2019-02-07 10:02 | Inpatient (IN) | payer MEDICARE, OTHER ==
[2019-02-07] MEDS ORDERED: Acetaminophen 325 MG TAB PO PRN (10:58)
[2019-02-07] MEDS ORDERED: Pantoprazole 40 MG VIAL IVP SCH (11:00)
[2019-02-07] MEDS ORDERED: Sodium Chloride 0.9% 1,000 ML IV SCH ×2 (11:00→12:00)
[2019-02-07 12:47] LABS: #Basophils 0.1 thou/uL (0.0-0.2); #Eosinphils 0.6 thou/uL (0.0-0.7); #Lymphocytes 2.3 thou/uL (1.20-3.40); #Monocytes 0.8 thou/uL (0.11-0.59); #Neutrophils 4.2 thou/uL (1.40-6.50); %Basophils 1.3 % (0.0-1.0); %Eosinophils 7.4 % (0.0-10.0); %Monocytes 10.5 % (0.0-10.0); %Neutrophils 51.8 % (42.0-75.0); Mean Corpuscular HGB CONC 32.9 g/dL (32.0-36.0); Mean Corpuscular Hemoglobin 29.9 pg (27.0-31.0); Mean Corpuscular Volume 90.7 fL (78.0-98.0); Mean Platelet Volume 8.5 fL (7.4-10.4); Platelet Count 111 thou/uL (130-400); RBC Distribution Width 15.4 % (11.5-14.5); Red Blood Cell (RBC) Count 4.34 mill/uL (4.20-5.40)
[2019-02-07 13:09] LABS: ALT (SGPT) Less than 7 U/L (8-55); AST (SGOT) 5 U/L (5-34); Albumin 3.4 g/dL (3.4-4.8); Alkaline Phosphatase 114 U/L (40-150); Anion Gap 15 mmol/L (10-20); BUN (Urea Nitrogen) 15 mg/dL (9.8-20.1); Bilirubin, Total 0.7 mg/dL (0.2-1.2); Calc. Creatinine Clearance 0 mL/min (70-130); Calcium 8.9 mg/dL (7.8-10.44); Carbon Dioxide 23 mmol/L (23-31); Chloride 108 mmol/L (98-107); Estimated GFR-MDRD 47; Globulin 2.4 g/dL (2.4-3.5); Glucose 115 mg/dL (83-110); Potassium 3.6 mmol/L (3.5-5.1); Protein, Total 5.8 g/dL (6.0-8.3); Sodium 142 mmol/L (136-145)
[2019-02-07] MEDS: Ondansetron PF 4 MG/2 ML Vial IVP PRN (13:35)
[2019-02-07 13:44] VITALS: BMI 40.0
--- NOTE | 2019-02-07 15:56 | CON ---
DATE OF CONSULTATION: 02/07/2019 REASON FOR CONSULTATION: Volume depletion, vomiting, and diarrhea. HISTORY OF PRESENT ILLNESS: A 73-year-old, whom we had recently seen with a history of type 2 diabetes, obesity, and left prepatellar or subpatellar bursitis secondary to methicillin-resistant Staph aureus with surrounding cellulitis. Blood cultures were negative. The organism was susceptible to clindamycin and the patient was discharged on Bactrim and clindamycin. She finished the treatment of about 10 days. Now, she has developed nausea, vomiting, and liquid stool intermittently with some abdominal cramping. She was readmitted because of inability to keep food or fluids down. No headaches, sore throat, odynophagia, or dysphagia. No shoulder pain. No back pain. No dyspnea or cough. No chest pain. No genitourinary symptoms. The left prepatellar bursa area is not painful and is healing well reportedly. The last wound care visit was about a week ago. PAST MEDICAL HISTORY: Type 2 diabetes, obesity, prepatellar bursitis secondary to MRSA, hyperlipidemia, previous UTIs, urinary incontinence, hypertension. SOCIAL HISTORY: Lives by herself in [place], has a cat. 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 No drug use. No family members around. ALLERGIES: NONE. MEDICATION LIST: 1. Tylenol. 2. Zofran. 3. Protonix. PHYSICAL EXAMINATION: VITAL SIGNS: Completely normal. Temperature normal. SKIN: Shows the prepatellar bursa area with negative pressure dressing. Previously noted erythema has completely resolved. There is no tenderness or induration around the area. Findings consistent with stasis dermatitis in lower extremities. Peripheral IV access. No Kim catheter. No lymphadenopathy. HEENT: Ocular movements conjugate. Oral cavity with numerous teeth in place with normal mucosa. NECK: Supple. No jugular vein distention or carotid bruits. No thyromegaly. LUNGS: Symmetric. Clear breath sounds. CARDIOVASCULAR: S1 and S2, regular rate without murmurs. No S3 or S4. ABDOMEN: Soft, moderately distended. Bowel sounds are increased, but no tenderness. No ascites. No bladder distention. No organomegaly. EXTREMITIES: No joint inflammatory activity. Pulses 1+ in dorsalis pedis. NEUROLOGIC: Nonfocal including cognitive function. She has a little bit of difficulty, I guess it is more of a hearing deficit than anything else. LABORATORY DATA: Sodium 142, potassium 3.6, creatinine is up to 1.13, and GFR down to 47. Liver profile normal. Albumin 3.4. White cell count 8.0, platelets 111, and 51% neutrophils. ASSESSMENT: Recent episode of prepatellar bursitis, type 2 diabetes, now having completed treatment with adequate response in terms of soft tissue inflammatory changes. The patient has developed volume depletion secondary to nausea, vomiting, and diarrhea. Rule out Clostridium difficile. Place her on enteric precautions until that is achieved. If the Clostridium difficile is positive, then treat accordingly. No further antimicrobials recommended for the prepatellar area, left side. Need to review the wound progress by removing the negative pressure dressing. Job ID: [id number]
[2019-02-07] MEDS: Sodium Chloride 0.9% 1,000 ML IV SCH (18:35)
[2019-02-07] MEDS: Pantoprazole 40 MG VIAL IVP SCH (20:28)
[2019-02-08] MEDS: Sodium Chloride 0.9% 1,000 ML IV SCH ×4 (03:21→20:28)
[2019-02-08 05:02] LABS: Bilirubin Negative (Negative); Blood, Urine Negative (Negative); Clarity CLOUDY (Clear); Glucose, Urine (Dipstick) Negative (Negative); Leukocyte Moderate (Negative); Nitrite Negative (Negative); Protein, Urine (Dipstick) Negative (Neg-Trace); Urobilinogen 0.2 mg/dL (0.2-1.0)
[2019-02-08 05:05] LABS: Bacteria/HPF None Seen HPF (None Seen); Pathc Cast-AUWi Flag 2.72 (0-2.49); Squamous Epithelial 0-3 HPF (0-3); Yeast-AUWi Flag 43.1 (0-25.0)
[2019-02-08 05:13] LABS: RBC/HPF 0-3 HPF (0-3)
[2019-02-08 05:14] LABS: Crystals/HPF None Seen HPF (Negative); Hyaline Casts/LPF 0-3 HYALINE CAST LPF (0-3 Hyaline); Other Casts/LPF None Seen LPF (0-3 Hyaline); Yeast-All Forms None Seen HPF (None Seen)
[2019-02-08 07:12] LABS: ALT (SGPT) Less than 7 U/L (8-55); AST (SGOT) 6 U/L (5-34); Albumin 2.8 g/dL (3.4-4.8); Alkaline Phosphatase 100 U/L (40-150); Anion Gap 10 mmol/L (10-20); BUN (Urea Nitrogen) 10 mg/dL (9.8-20.1); Bilirubin, Total 0.5 mg/dL (0.2-1.2); Calc. Creatinine Clearance 83 mL/min (70-130); Calcium 7.8 mg/dL (7.8-10.44); Carbon Dioxide 23 mmol/L (23-31); Chloride 112 mmol/L (98-107); Estimated GFR-MDRD 62; Globulin 2.1 g/dL (2.4-3.5); Glucose 94 mg/dL (83-110); Potassium 3.2 mmol/L (3.5-5.1); Protein, Total 4.9 g/dL (6.0-8.3); Sodium 142 mmol/L (136-145)
[2019-02-08] MEDS: Pantoprazole 40 MG VIAL IVP SCH ×2 (10:27→20:27)
[2019-02-08] MEDS: Potassium Chloride 20 MEQ TAB PO SCH (16:37)
--- NOTE | 2019-02-08 16:45 | HP ---
CHIEF COMPLAINT: Dehydration and diarrhea. HISTORY OF PRESENT ILLNESS: The patient is a 73-year-old female, recently hospitalized for MRSA, subpatellar bursitis, and left prepatellar bursitis. This required going to the operating room for decompression, drainage, and culture. The patient had been placed on appropriate antibiotics and had completed that round of antibiotics. However, in the last week, she developed severe diarrhea and rash that was very pruritic. She was scratching it constantly. She could not hold down any fluids or liquids due to persistent emesis and she had chronic diarrhea, many stools a day that had left her very very weak. In my office at the time of admission, her systolic blood pressure dropped below 90, while her pulse rate was over 111. She was very weak and membranes were dry, requiring hospitalization for resuscitation and re-evaluation. She denied any recent fever, chest pain, or shortness of breath, but was completely unable to keep even water down at the time of admission. PAST MEDICAL HISTORY: Revealed improved controlled type 2 diabetes with a long history of noncompliance prior to this hospitalization; recurrent urinary tract infections with urinary incontinence, those are being monitored by another physician; obesity; hypertension; dyslipidemia; vitamin D deficiency; Guillain-[place] syndrome in 1993; hypertension as well as right breast cancer; and hypothyroidism. PAST SURGICAL HISTORY: Includes the most recent incision and drainage of her infected bursa of her left knee. She has also had hysterectomy, right breast lumpectomy, and an ablation. SOCIAL HISTORY: She lives by herself in [place]. 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 She denies smoking or drinking. ALLERGIES: SHE HAS NO KNOWN DRUG ALLERGIES. MEDICATIONS: At the time of admission include; 1. Myrbetriq 50 mg daily. 2. Oxybutynin 15 mg once a day. 3. Januvia 100 mg daily. 4. Metoprolol 100 mg daily. 5. Metformin 1000 mg daily. 6. Vitamin D 50,000 units weekly. 7. She has also been taking aspirin 81 mg daily. 8. Trulicity 0.75 mg subcu weekly. REVIEW OF SYSTEMS: CONSTITUTIONAL: At the time of admission, significant for weakness, malaise, fatigue, but denies fever or chills. HEENT: No drainage from ears, eyes, nose, or throat. Membranes are dry. CHEST: Denies shortness of breath or coughing. CARDIOVASCULAR: Denies palpitations or chest pain. GI: Has persistent nausea, vomiting, and diarrhea. : Does not admit to any dysuria or blood in urine or stool. MUSCULOSKELETAL: Has wound VAC present on left knee, but otherwise without significant issues with her other leg or upper extremities. SKIN: Significant for diffuse pruritic rash with diffuse excoriations. It is erythematous and dry. NEUROLOGIC: Denies headaches, hallucinations, delusions, hypoesthesia, and anesthesia. PHYSICAL EXAMINATION: VITAL SIGNS: At the time of admission, blood pressure 94/[address] Fields' office with a pulse of 111, respirations 22, pulse 111, temperature 97.6, and O2 saturation 95% on room air. GENERAL: She has lost 20 pounds in the last week and is now down to 205. Morbidly obese, female, alert, oriented, cooperative, in moderate distress. HEENT: Normocephalic, atraumatic. Pupils are equal, round, and reactive to light at 1 mm to 2 mm. Arcus senilis bilaterally. TMs, nares clear. Pharynx is dry. NECK: Supple. Trachea midline. CHEST: Clear to auscultation. BREASTS: Deferred. HEART: Regular rate and rhythm. ABDOMEN: Obese. Unable to appreciate organomegaly, generally nontender. : Deferred. EXTREMITIES: Wound VAC in left knee. Otherwise, no clubbing, cyanosis, or edema. SKIN: Diffuse erythematous rash with diffuse excoriations. NEUROLOGIC: Cranial nerves are intact. Gait is adequate with walker. Mental status is at baseline. Cranial nerves intact. Sensory exam is intact. LABORATORY DATA: Lab work thus far showed WBCs at 8, hemoglobin 13, hematocrit 39.4, and platelets of 111. Sodium 142, potassium 3.2, chloride 112, CO2 of 23, BUN 10, creatinine 0.89, and a glucose of 94. Blood cultures pending. UA shows wbc's too numerous to count with leukocyte esterase positive. ASSESSMENT: 1. Dehydration. 2. Diarrhea, rule out Clostridium difficile. 3. Recent episode of prepatellar and subpatellar bursitis, infected with methicillin-resistant Staphylococcus aureus. 4. Type 2 diabetes. 5. Urinary tract infection. PLAN: Plan will be to culture stool, IV fluids, antiemetics, and serial re-evaluation and wound care consult to finish care for the left knee. Job ID: [id number]
--- NOTE | 2019-02-08 21:55 | PRG ---
DATE OF SERVICE: 02/08/2019 SUBJECTIVE: Had loose stools again and sample submitted for C diff testing, which is reported below. No respiratory symptoms and the knee is doing well. OBJECTIVE: VITAL SIGNS: Normal. GENERAL: Awake, alert and oriented. LUNGS: Clear. HEART: S1-S2 regular rate. ABDOMEN: With increased bowel sounds. Mildly distended. LABORATORY DATA: White cell count 8.0, has not been repeated. Chemistry has not been repeated. C difficile antigen and toxin were negative. Campylobacter and Shiga toxin tests were also negative. Blood cultures negative thus far. ASSESSMENT AND DISCUSSION: Type 2 diabetes, recent prepatellar bursitis status post treatment with adequate response and now volume depletion secondary to nausea, vomiting, and diarrhea, Clostridium difficile negative. Continue conservative management. Withhold any antimicrobial therapy at this point in time. The wound dressing has been removed and the base of the wound looks healthy with 100% granulation, a little bit of undermining, but no erythema surrounding the area. Job ID: [id number] [facility]
[2019-02-09] MEDS: Levothyroxine Sodium 25 MCG TAB PO SCH (05:30)
[2019-02-09] MEDS: Sodium Chloride 0.9% 1,000 ML IV SCH (05:30)
[2019-02-09 06:36] LABS: Hemoglobin A1c 7.2 % (4.0-6.0)
[2019-02-09 06:51] LABS: Anion Gap 11 mmol/L (10-20); BUN (Urea Nitrogen) 8 mg/dL (9.8-20.1); Calc. Creatinine Clearance 92 mL/min (70-130); Calcium 8.2 mg/dL (7.8-10.44); Carbon Dioxide 20 mmol/L (23-31); Cardiac Risk 6.9 (Less than 4.5); Chloride 116 mmol/L (98-107); Cholesterol 110 mg/dl (< 200 Desired); Estimated GFR-MDRD 70; Glucose 93 mg/dL (83-110); HDL Cholesterol 16 mg/dL (>60 Neg Risk); LDL Cholesterol, Calculated 61 mg/dL; Potassium 3.2 mmol/L (3.5-5.1); Sodium 144 mmol/L (136-145); Triglycerides 166 mg/dL (Less than 150)
[2019-02-09] MEDS: Potassium Chloride 20 MEQ TAB PO SCH ×2 (10:18→17:01)
[2019-02-09] MEDS: Aspirin 81 mg Enteric Coated Tablet PO SCH (10:19)
[2019-02-09] MEDS: Pantoprazole 40 MG VIAL IVP SCH ×2 (10:20→20:49)
[2019-02-09] MEDS ORDERED: Diphenoxylate HCl/Atropine Tablet PO SCH (11:15)
[2019-02-09] MEDS: Diphenoxylate HCl/Atropine Tablet PO PRN ×2 (17:01→20:48)
[2019-02-10] MEDS: Levothyroxine Sodium 25 MCG TAB PO SCH (05:21)
[2019-02-10 05:34] LABS: #Eosinphils 1.4 thou/uL (0.0-0.7); #Lymphocytes 2.9 thou/uL (1.20-3.40); #Monocytes 0.6 thou/uL (0.11-0.59); #Neutrophils 3.8 thou/uL (1.40-6.50); %Basophils 0.1 % (0.0-1.0); %Eosinophils 16.2 % (0.0-10.0); %Lymphocytes 33.2 % (21.0-51.0); %Monocytes 7.1 % (0.0-10.0); %Neutrophils 43.5 % (42.0-75.0); Hemoglobin 14.2 g/dL (12.0-16.0); Mean Corpuscular HGB CONC 32.2 g/dL (32.0-36.0); Mean Corpuscular Hemoglobin 29.4 pg (27.0-31.0); Mean Corpuscular Volume 91.5 fL (78.0-98.0); Mean Platelet Volume 10.3 fL (7.4-10.4); Platelet Count 72 thou/uL (130-400); RBC Distribution Width 15.6 % (11.5-14.5); Red Blood Cell (RBC) Count 4.83 mill/uL (4.20-5.40); White Blood Cell (WBC) Count 8.7 thou/uL (4.8-10.8)
[2019-02-10 05:35] LABS: Anion Gap 11 mmol/L (10-20); BUN (Urea Nitrogen) 9 mg/dL (9.8-20.1); Calc. Creatinine Clearance 81 mL/min (70-130); Calcium 8.2 mg/dL (7.8-10.44); Carbon Dioxide 19 mmol/L (23-31); Chloride 115 mmol/L (98-107); Estimated GFR-MDRD 61; Glucose 113 mg/dL (83-110); Potassium 3.8 mmol/L (3.5-5.1); Sodium 141 mmol/L (136-145)
[2019-02-10] MEDS: Diphenoxylate HCl/Atropine Tablet PO PRN ×4 (05:45→23:50)
[2019-02-10] MEDS: Aspirin 81 mg Enteric Coated Tablet PO SCH (09:25)
[2019-02-10] MEDS: Ondansetron PF 4 MG/2 ML Vial IVP PRN (09:25)
[2019-02-10] MEDS: Potassium Chloride 20 MEQ TAB PO SCH ×2 (09:25→18:31)
[2019-02-10] MEDS: Alogliptin 6.25 MG TAB PO SCH (09:25)
[2019-02-10] MEDS: Pantoprazole 40 MG VIAL IVP SCH ×2 (09:26→20:33)
[2019-02-10] MEDS: diphenhydrAMINE 25 MG CAP PO SCH (20:32)
[2019-02-11] MEDS: Levothyroxine Sodium 25 MCG TAB PO SCH (05:18)
[2019-02-11] MEDS: Diphenoxylate HCl/Atropine Tablet PO PRN (05:18)
[2019-02-11] MEDS: Potassium Chloride 20 MEQ TAB PO SCH ×2 (07:59→16:45)
[2019-02-11] MEDS: Aspirin 81 mg Enteric Coated Tablet PO SCH (07:59)
[2019-02-11] MEDS: Alogliptin 6.25 MG TAB PO SCH (07:59)
[2019-02-11] MEDS: Pantoprazole 40 MG VIAL IVP SCH ×2 (07:59→20:45)
[2019-02-11 11:24] LABS: Hemoglobin 13.7 g/dL (12.0-16.0); Mean Corpuscular HGB CONC 33.1 g/dL (32.0-36.0); Mean Corpuscular Hemoglobin 30.5 pg (27.0-31.0); Mean Corpuscular Volume 92.2 fL (78.0-98.0); Mean Platelet Volume 8.6 fL (7.4-10.4); Platelet Count 97 thou/uL (130-400); RBC Distribution Width 15.7 % (11.5-14.5); Red Blood Cell (RBC) Count 4.48 mill/uL (4.20-5.40); White Blood Cell (WBC) Count 9.7 thou/uL (4.8-10.8)
[2019-02-11 11:50] LABS: ALT (SGPT) Less than 7 U/L (8-55); AST (SGOT) 6 U/L (5-34); Albumin 2.7 g/dL (3.4-4.8); Alkaline Phosphatase 121 U/L (40-150); Anion Gap 10 mmol/L (10-20); BUN (Urea Nitrogen) 12 mg/dL (9.8-20.1); Bilirubin, Total 0.6 mg/dL (0.2-1.2); Calc. Creatinine Clearance 83 mL/min (70-130); Calcium 7.8 mg/dL (7.8-10.44); Carbon Dioxide 18 mmol/L (23-31); Chloride 114 mmol/L (98-107); Estimated GFR-MDRD 62; Globulin 2.2 g/dL (2.4-3.5); Glucose 136 mg/dL (83-110); Potassium 3.8 mmol/L (3.5-5.1); Protein, Total 4.9 g/dL (6.0-8.3); Sodium 138 mmol/L (136-145)
[2019-02-11 12:33] LABS: Band 8 % (5-11); Eosinophils 20 % (0-10); Lymphocytes 30 % (21-51); MDiff Complete? YES; Monocytes 4 % (0-10); Myelocyte 2 % (0-0); Neutrophil 34 % (42-75); Platelet Morphology Comment Appears Decreased; RBC Morphology Normal; Reactive Lymphocytes 2 % (0-10)
[2019-02-11] MEDS: hydrOXYzine 25 MG TAB PO SCH ×3 (14:13→20:44)
[2019-02-11] MEDS: diphenhydrAMINE 25 MG CAP PO SCH (20:44)
--- NOTE | 2019-02-12 02:34 | CON ---
DATE OF CONSULTATION: 02/11/2019 REASON FOR CONSULTATION: Nausea, vomiting and diarrhea. CONSULTING PHYSICIAN: Dr. Royce Fields. HISTORY OF PRESENT ILLNESS: The patient is a 73-year-old female with past medical history of diabetes, recurrent urinary tract infections, urinary incontinence, hypothyroidism, breast cancer, obesity, hypertension, hyperlipidemia, vitamin D deficiency, and Guillain-[place] syndrome presenting with increased nausea, vomiting, and diarrhea. Per chart review, the patient was recently admitted to the hospital in December 2018 with increased cellulitis of the left lower extremity. She was subsequently taken for irrigation and drainage for what appeared to be abscess formation within the prepatellar bursa in addition to antibiotics administered at that time. She responded well to IV antibiotic administration and was ultimately discharged to home on oral medications. However, upon conferring with the patient, she states that on discharge she began to have increased nausea, vomiting, and diarrhea, with her nausea and vomiting occurring approximately 2-3 times daily with nonbloody emesis. It would occur within 5-10 minutes after the consumption of any foods (either solids or liquids) and was associated with decreased appetite and dysgeusia. She also endorses increased diarrhea having approximately 3 liquid bowel movements per day over the last 2-3 weeks, but cannot remember exactly when the diarrhea started and they had been present for longer period of time. With these 3 liquid bowel movements per day that were characterized as approximately [place] 6-7 and she denied any difficulty with defecation. However on this admission, she was initially admitted to the hospital for signs of dehydration with subsequent tachycardia and hypertension. She was ultimately admitted to the hospital for resuscitation with IV fluids and has responded well to this modality at this time. Currently, in addition to the above, she also endorsed increased sores on her abdomen and upper extremities in addition to increased pruritus that she experienced mostly within the upper body as well. However, she denies any fevers, chills, GI bleeding, abdominal pain, dysphagia, or odynophagia. Of note, the patient states that she had been having diarrhea with the increased nausea and vomiting after her recent discharge from the hospital, it did significantly make her more weak and the rash did not start until administration of oral antibiotics at home. REVIEW OF SYSTEMS: A 10-category review of systems was obtained with all responses negative except for the pertinent positives as listed in the HPI. PAST MEDICAL HISTORY: As per HPI. PAST SURGICAL HISTORY: Incision and drainage of infected bursa of her left knee, hysterectomy, right breast lumpectomy, and cardiac ablation. FAMILY HISTORY: Denies any GI malignancies. SOCIAL HISTORY: Denies any tobacco, alcohol, or illicit drug use. OUTPATIENT MEDICATIONS: Reviewed. ALLERGIES: NO KNOWN DRUG ALLERGIES. PHYSICAL EXAMINATION: VITAL SIGNS: Temperature 99, pulse 76, blood pressure 148/81, respiratory rate 20, saturating 98% on room air. GENERAL: The patient was lying in bed, in no acute distress. Alert and oriented x4, albeit hard of hearing. HEENT: Normocephalic, atraumatic. NECK: Supple. No JVD or scleral icterus noted. CARDIOVASCULAR: Regular rate and rhythm with a 3/6 systolic murmur best heard at the left lower sternal border within the midclavicular line. RESPIRATORY: Clear to auscultation bilaterally with no discernible wheezes or rales. ABDOMEN: Normoactive bowel sounds. Soft, nontender with mild abdominal distention that was tympanic to percussion. EXTREMITIES: No cyanosis or clubbing. However, exhibited 1+ bilateral extremity edema to the mid szymanski with no evidence of skin erythema or purulence in the left lower extremity wound. LABORATORY DATA: CBC with a white blood cell count of 9.7, hemoglobin 13.7, hematocrit 41.3, platelets 97. Chemistry with a sodium 138, potassium 3.8, chloride 114, CO2 of 18, BUN 12, creatinine 0.89, glucose 136, AST 6, ALT less than 7, alkaline phosphatase 121, total bilirubin 0.6. IMAGING DATA: No current GI imaging is available for review. ASSESSMENT AND PLAN: The patient is a 73-year-old female with past medical history of diabetes, recurrent urinary tract infections, urinary incontinence, obesity, hypertension, hypothyroidism, hyperlipidemia, vitamin D deficiency, Guillain-[place] syndrome, breast cancer, and more recently prepatellar bursitis with left lower extremity cellulitis, presenting with complaints of nausea, vomiting, and diarrhea. 1. Nausea and vomiting. The patient is presenting with an approximate 2-3 week history of nausea and vomiting that began shortly after her discharge from the hospital for treatment of the left lower extremity cellulitis. During the hospitalization, she was able to tolerate both solids and liquids well with no evidence of nausea vomiting with IV fluids and IV antibiotics. However, within 1 day after discharge and placement on oral antibiotic, she began to exhibit increased nausea vomiting with nonbloody emesis. Given the timing of her increased nausea and vomiting in the initiation of oral antibiotic therapy medication induced nausea vomiting seems to be the most likely explanation. When coupled with the upper extremity and truncal rash, it is also concerning for a possible leukocytoclastic vasculitis or allergic response to her discharge oral antibiotics. She was discharged with clindamycin and Bactrim both which could potentially generate increased nausea, vomiting and/or diarrhea. At this point, her nausea and vomiting seems to be improving with aggressive antiemetic medication administration and she is able to hold some more liquid food stuffs down. At this point the differential could include medication induced nausea, vomiting, gastritis, esophagitis, gastroparesis and/or possible GI malignancy (much less likely). Recommendations: 1. We would continue with aggressive antiemetic control as you are doing right now, but we will consider scheduling Zofran for antiemetic control. 2. We would continue to hold any antibiotics in this patient as she could have had a potential reaction on discharge to both clindamycin or Bactrim. 3. We would attempt to hold any narcotics as it could potentially worsen any sort of gastroparesis type picture and potentially generate nausea vomiting. 4. We would continue to monitor the patient for now with holding on additional studies including a gastric emptying study, but if she is not responding to more conservative management, we will consider this as an adjunct as well. 5. Diarrhea. The patient states that she has been having increased diarrhea for the last couple of months, but it is unclear in terms of the original origin of her diarrhea, which she describes her diarrhea as having approximately 3 liquid bowel movements per day ([place] 6-7) with no difficulty with defecation. She noticed that upon discharge from her prior hospitalization that her diarrhea had gotten slightly worse with administration of both clindamycin and Bactrim for her left lower extremity cellulitis. During this admission, she has had stool studies that were negative for C. diff, Campylobacter and E. coli with a culture negative at this time as well. With administration of Lomotil as needed, she has had improvement in her diarrhea, but not necessarily mt. At this time, the more likely reason for her diarrhea would be the administration of antibiotics and an antibiotic associated diarrhea that may have had a possible leukocytoclastic effect on the GI tract that was superficially manifested by her pruritic skin rash. Sometimes these things do take some time in order to resolve, so I would opt to treat her more conservatively at this time. Recommendations: 1. We would continue to hold antibiotics on this patient unless truly necessary. 2. We will add Citrucel 500 mg tablet daily as part of the stool bulking technique. 3. If the patient is to be discharged soon, could consider follow up in the GI clinic and if continues to have diarrhea at that time, would consider possible colonoscopy for further evaluation. 4. We will continue to follow. Please call with any questions. Job ID: [id number]
[2019-02-12] MEDS: Levothyroxine Sodium 25 MCG TAB PO SCH (05:46)
[2019-02-12] MEDS: Potassium Chloride 20 MEQ TAB PO SCH ×2 (08:32→16:32)
[2019-02-12] MEDS: Aspirin 81 mg Enteric Coated Tablet PO SCH (08:33)
[2019-02-12] MEDS: hydrOXYzine 25 MG TAB PO SCH ×4 (08:33→20:41)
[2019-02-12] MEDS: Pantoprazole 40 MG VIAL IVP SCH ×2 (08:33→20:41)
[2019-02-12] MEDS: Alogliptin 6.25 MG TAB PO SCH (08:33)
[2019-02-12] MEDS ORDERED: Citrucel 500 MG TAB PO SCH (09:00)
[2019-02-12] MEDS ORDERED: Ondansetron ODT 4 MG TAB PO PRN (09:29)
[2019-02-12] MEDS: Diphenoxylate HCl/Atropine Tablet PO PRN ×3 (12:32→20:40)
[2019-02-12] MEDS: Ondansetron ODT 4 MG TAB PO SCH ×3 (12:33→20:39)
[2019-02-12] MEDS: diphenhydrAMINE 25 MG CAP PO SCH (20:40)
--- NOTE | 2019-02-13 03:58 | PRG ---
DATE OF SERVICE: 02/12/2019 REASON FOR CONSULTATION: Nausea, vomiting, and diarrhea. SUBJECTIVE: Today, the patient had approximately 3-4 large volume liquid bowel movements that she considered "her bad day." She denies any melena or hematochezia associated with these diarrhea or bowel movements, but also asserted that it "takes a lot of energy out of me when I have this." She denies any further episodes of nausea or vomiting with good control of those at this time based on current antiemetic therapy. Otherwise, she denies any fevers, chills, hematemesis, abdominal pain, constipation, dysphagia, or odynophagia. OBJECTIVE: VITAL SIGNS: Temperature 98.4, pulse 76, blood pressure 113/65, respiratory rate 20, saturating 96% on room air. GENERAL: The patient was lying in bed, in no acute distress. Alert and oriented x4. CARDIOVASCULAR: Regular rate and rhythm with 3/6 systolic murmur best heard at the left lower sternal border in the midclavicular line. RESPIRATORY: Clear to auscultation bilaterally. ABDOMEN: Normoactive bowel sounds. Soft, nontender, with mild abdominal distention. EXTREMITIES: No cyanosis or clubbing, although 1+ bilateral lower extremity edema to the mid szymanski was seen. LABORATORY DATA: No current labs are available for review. IMAGING DATA: No current GI imaging is available for review. ASSESSMENT AND PLAN: The patient is a 73-year-old female with past medical history of diabetes, recurrent urinary tract infections, urinary incontinence, obesity, hypertension, hypothyroidism, hyperlipidemia, vitamin D deficiency, Guillain-[place] syndrome, breast cancer, and more recently prepatellar bursitis with left lower extremity cellulitis status post antibiotics presenting with nausea, vomiting, and diarrhea. Nausea and vomiting. The patient initially presented with 2-to 3-week history of nausea and vomiting that began shortly after discharge from her previous hospitalization. However, during this hospitalization with more aggressive antiemetic medication administration and discontinuation of the oral antibiotics, she seems to have a significant improvement in her nausea and vomiting. At this point, it seems as though she is able to hold more liquid and/or solid food down and would most likely benefit from advancing her diet. RECOMMENDATIONS: 1. We would continue with aggressive antiemetic control as you are doing. 2. We would continue to hold any antibiotics as they could have adverse reaction to generate nausea and vomiting. 3. We would attempt to hold any narcotics as it could potentially worsen a short of gastroparesis type picture and generate nausea and vomiting. 4. We would advance the diet as tolerated. 5. We would continue to hold on endoscopic evaluation per patient's preference at this time. Diarrhea. The patient has a longstanding history of diarrhea, presenting with approximately 3 liquid bowel movements per day prior to admission. On admission, she continued to have 3-4 large volume liquid bowel movements today and when coupled with her increased nausea and vomiting, most likely contributed to her significant dehydration noted on admission. With the discontinuation of antibiotics and addition of fiber to her bowel regimen, she has not noticed any significant difference thus far. Infectious stool studies have been negative for C. diff, Campylobacter and E. coli with culture negative at this time as well. She does have some symptom improvement with the more regular use of Lomotil during this hospitalization. At this point, it seems like the most likely reason would be the oral antibiotics that were administered shortly after her discharge contributing to her diarrhea. However, diarrhea seems start to mt by now given that the last administration of these antibiotics which was approximately 3-4 days ago. If this is truly part of leukocytoclastic vasculitis type reaction, then she could continue to have diarrhea over the next 1-2 weeks. I discussed the option of treating her more conservatively at this time with antimotility agents in addition to fiber supplementation and she would like to proceed with that at this time as opposed to endoscopic evaluation. RECOMMENDATIONS: 1. We would continue to hold antibiotics on this patient, as truly necessary. 2. We would continue Citrucel 500 mg daily. 3. We would continue Lomotil as an antimotility agent. 4. If the patient's diarrhea does not begin to improve soon, would then consider both upper and lower endoscopies for further evaluation. We will continue to follow. Please call with any questions. Job ID: [id number]
[2019-02-13] MEDS: Levothyroxine Sodium 25 MCG TAB PO SCH (05:24)
[2019-02-13] MEDS: Potassium Chloride 20 MEQ TAB PO SCH ×2 (08:59→17:41)
[2019-02-13] MEDS ORDERED: Citrucel 500 MG TAB PO SCH (09:00)
[2019-02-13] MEDS: Alogliptin 6.25 MG TAB PO SCH (09:01)
[2019-02-13] MEDS: Pantoprazole 40 MG VIAL IVP SCH (09:01)
[2019-02-13] MEDS: Aspirin 81 mg Enteric Coated Tablet PO SCH (09:02)
[2019-02-13] MEDS: Ondansetron ODT 4 MG TAB PO SCH ×4 (09:02→20:50)
[2019-02-13] MEDS: hydrOXYzine 25 MG TAB PO SCH ×4 (09:02→20:50)
[2019-02-13] MEDS: Diphenoxylate HCl/Atropine Tablet PO PRN ×2 (09:17→15:34)
--- NOTE | 2019-02-13 14:11 | PDOC.PN ---
- Subjective Encounter Start Date: 02/13/19 Encounter Start Time: 14:09 Patient seen and examined, no new issues. - Objective Vital Signs & Weight: Vital Signs (12 hours) Temp Pulse Resp BP Pulse Ox 02/13/19 07:40 98.4 F 79 18 133/81 94 L Weight Admit Weight 205 lb Weight 205 lb I&O: 02/12/19 02/13/19 02/14/19 06:59 06:59 06:59 Intake Total 1780 1500 Balance 1780 1500 Result Diagrams: 02/11/19 11:16 02/11/19 11:16 Phys Exam - Physical Examination Constitutional: NAD HEENT: PERRLA, moist MMs, sclera anicteric Neck: no nodes, no JVD, supple Respiratory: no wheezing, no rales, no rhonchi Cardiovascular: RRR, no significant murmur, no rub Gastrointestinal: soft, non-tender, no distention, positive bowel sounds Musculoskeletal: pulses present, edema present (trace) Dx/Plan (1) Cellulitis Code(s): L03.90 - CELLULITIS, UNSPECIFIED Status: Acute - Plan * cont current plan of care * change to PO protonix * possible DC in 24 hours if doing well
[2019-02-13] MEDS ORDERED: Magnesium Citrate 300 ML BOT PO SCH (20:00)
--- NOTE | 2019-02-13 20:20 | PRG ---
DATE OF SERVICE: 02/13/2019 SUBJECTIVE: Ms. Olea's diarrhea persists, it is really no better. OBJECTIVE: VITAL SIGNS: Temperature is 98, pulse 78, and blood pressure 133/81. GENERAL: She is resting in bed. She is somewhat hard of hearing. ABDOMEN: Protuberant, but nontender. She has some rash with chronic scarring on the abdominal wall. LABORATORY DATA: Labs today, none. ASSESSMENT: Diarrhea 3 to 5 times per day, persistent despite Lomotil. Stool studies are negative. We will check her for fecal lactoferrin RECOMMENDATIONS: 1. Check stool for fecal fat. 2. Check stool for fecal lactoferrin. 3. Colonoscopy tomorrow. 4. EGD with small bowel biopsies tomorrow. Job ID: [id number]
[2019-02-13] MEDS: diphenhydrAMINE 25 MG CAP PO SCH (20:50)
[2019-02-14] MEDS: Levothyroxine Sodium 25 MCG TAB PO SCH (05:22)
[2019-02-14 06:18] LABS: Anion Gap 10 mmol/L (10-20); BUN (Urea Nitrogen) 15 mg/dL (9.8-20.1); Calc. Creatinine Clearance 82 mL/min (70-130); Calcium 8.6 mg/dL (7.8-10.44); Carbon Dioxide 20 mmol/L (23-31); Chloride 112 mmol/L (98-107); Estimated GFR-MDRD 61; Glucose 115 mg/dL (83-110); Magnesium 1.5 mg/dL (1.6-2.6); Phosphorus 3.1 mg/dL (2.3-4.7); Potassium 4.3 mmol/L (3.5-5.1); Sodium 138 mmol/L (136-145)
[2019-02-14] MEDS ORDERED: Pantoprazole 40 MG GRANULES PACKET PO SCH (09:00)
[2019-02-14] MEDS ORDERED: Ketamine 50 MG/ML (10ML VIAL) ONE (09:45)
[2019-02-14] MEDS ORDERED: Midazolam HCl 2 mg/2 ml Vial ONE (09:48)
[2019-02-14] MEDS ORDERED: Ondansetron HCl/PF 4 MG/2 ML Vial IVP PRN (10:55)
[2019-02-14] MEDS ORDERED: Magnesium 2 GM/50 ML 2 GM in Premix Bag 1 BAG IVPB SCH (11:30)
[2019-02-14] MEDS: Cholestyramine/Aspartame 4 gm Packet PO SCH ×2 (11:45→21:12)
[2019-02-14] MEDS: Potassium Chloride 20 MEQ TAB PO SCH ×2 (11:46→17:38)
[2019-02-14] MEDS: hydrOXYzine 25 MG TAB PO SCH ×4 (11:46→20:08)
[2019-02-14] MEDS: Ondansetron ODT 4 MG TAB PO SCH ×4 (11:46→20:08)
[2019-02-14] MEDS: Aspirin 81 mg Enteric Coated Tablet PO SCH (11:51)
--- NOTE | 2019-02-14 12:21 | OP ---
DATE OF PROCEDURE: 02/14/2019 PREOPERATIVE DIAGNOSES: 1. Diarrhea for over a month. 2. Negative stool studies for infection. Positive lactoferrin. Negative Clostridium difficile. Negative routine cultures. Routine culture showed many normal melva. Cyclospora study pending. POSTPROCEDURE DIAGNOSES: 1. Esophagogastroduodenoscopy notable for normal esophagus, retained gastric contents suggestive of gastroparesis with no signs of gastric outlet obstruction, erosive and hemorrhagic gastritis in the antrum, nonbleeding. Multiple biopsies obtained. 2. Normal duodenum, except for areas of erythema and erosions with some retained contents. Biopsies obtained. 3. Colonoscopy notable for 9 polyps ranging in size from 3 to 7 cm sessile and semipedunculated, 5 in the ascending, 4 in the descending, all removed by cold snare polypectomy with good hemostasis. 4. Random colon biopsies obtained for chronic diarrhea. 5. Normal terminal ileum. 6. Mild inflammation in the rectum with edema and loss of vascular pattern consistent with stasis changes. Random biopsies obtained. 7. Mild diverticulosis. RECOMMENDATIONS: 1. Await histopathology, lactose-free diet, probiotics. If symptoms persists, consider CT scan of the abdomen and pelvis. 2. Change Protonix to IV. 3. Await Cyclospora stool sample. ANESTHESIA: TIVA. PROCEDURE IN DETAIL: The patient was informed of the risks, benefits, and possible complications of endoscopy including perforation, reaction to medication, and aspiration. Informed consent was obtained. The patient was brought to the endoscopy suite, where she was sedated in standard fashion. Once she was comfortable, a bite block was placed inside the orifice. The endoscope was advanced through esophagus, stomach and second and third portions of the duodenum, and slowly removed. There was good visualization of the mucosa. The esophagus was normal. The stomach was notable for retained gastric contents. Normal stomach cannot be evaluated. Retroflexed views revealed food in the fundus and cardia. The GE junction did appear normal. Gastric outlet appeared normal. There were no signs of duodenal obstruction to the third portion. There was mild erythema and small erosions of the duodenum, which were biopsied and sent to Pathology. There was no appearance of celiac. The bulb was normal. The pyloric channel was open. There was hemorrhagic and erosive gastritis in the antrum of the stomach. Multiple biopsies were obtained. There was no active bleeding and no strictures. The scope was removed. The patient was returned to the room. Rectal examination was normal. The endoscope was advanced into the anal canal through the colon to the cecum and terminal ileum. The ileum was entered and found to be normal. The scope was then slowly removed. The prep was fair to poor. It was irrigated with about a liter and got a fairly good prep. Five polyps were noted in the ascending colon, 4 to 7 mm in size, removed by cold snare polypectomy. Random biopsies were taken in the right colon and put in a separate jar. There were 4 polyps noted in the descending and sigmoid colon, 3 to 7 cm in size, removed by cold snare polypectomy and submitted to Pathology. There were changes of loss of vascular pattern and slight edema in the rectum and lower sigmoid, consistent with stasis changes or possibly mild ischemia. Multiple biopsies were obtained and submitted to Pathology. Retroflexed views were normal, and the scope was removed. The patient tolerated the procedure well. There were no complications. Job ID: [id number]
[2019-02-14] MEDS ORDERED: Sodium Chloride 0.9% (PF) 10 ML VIAL FS PRN (12:59)
--- NOTE | 2019-02-14 14:37 | PDOC.PN ---
- Subjective Encounter Start Date: 02/14/19 Encounter Start Time: 14:36 Patient seen and examined, no new issues. - Objective Vital Signs & Weight: Vital Signs (12 hours) Temp Pulse Resp BP BP Pulse Ox 02/14/19 07:46 97.9 F 74 16 139/77 94 L 02/14/19 07:40 94 L 02/14/19 04:00 98.5 F 76 18 126/78 96 Weight Admit Weight 205 lb Weight 205 lb I&O: 02/13/19 02/14/19 02/15/19 06:59 06:59 06:59 Intake Total 1500 1200 Balance 1500 1200 Result Diagrams: 02/11/19 11:16 02/14/19 05:38 Additional Labs: Accuchecks 02/14/19 02/14/19 12:13 05:52 POC Glucose 93 111 H Phys Exam - Physical Examination Constitutional: NAD HEENT: PERRLA, moist MMs, sclera anicteric Neck: no nodes, no JVD, supple Respiratory: no wheezing, no rales, no rhonchi Cardiovascular: RRR, no significant murmur, no rub Gastrointestinal: soft, non-tender, no distention, positive bowel sounds Musculoskeletal: no edema, pulses present Dx/Plan (1) Cellulitis Code(s): L03.90 - CELLULITIS, UNSPECIFIED Status: Acute - Plan * colonoscopy for today * no other changes in plan of care
[2019-02-14] MEDS ORDERED: PROPOFOL 200 MG/20 ML VIAL ONE (14:54)
[2019-02-14] MEDS: diphenhydrAMINE 25 MG CAP PO SCH (20:08)
[2019-02-15] MEDS: Levothyroxine Sodium 25 MCG TAB PO SCH (06:05)
[2019-02-15] MEDS: Pantoprazole 40 MG VIAL IVP SCH (08:33)
[2019-02-15] MEDS: Ondansetron ODT 4 MG TAB PO SCH ×4 (08:33→20:34)
[2019-02-15] MEDS: Lactinex Tablet PO SCH (08:33)
[2019-02-15] MEDS: Aspirin 81 mg Enteric Coated Tablet PO SCH (08:33)
[2019-02-15] MEDS: Potassium Chloride 20 MEQ TAB PO SCH ×2 (08:33→17:30)
[2019-02-15] MEDS: hydrOXYzine 25 MG TAB PO SCH ×4 (08:33→20:34)
[2019-02-15] MEDS ORDERED: TRULICITY 0.75 MG/0.5 ML SC SCH (09:00)
[2019-02-15] MEDS: Cholestyramine/Aspartame 4 gm Packet PO SCH ×2 (11:26→20:35)
--- NOTE | 2019-02-15 12:03 | PDOC.PN ---
- Subjective Encounter Start Date: 02/15/19 Encounter Start Time: 12:02 Patient seen and examined, no new issues. - Objective Vital Signs & Weight: Vital Signs (12 hours) Temp Pulse Resp BP BP Pulse Ox 02/15/19 10:30 97.6 F 81 18 117/76 96 02/15/19 08:00 96 02/15/19 04:00 97.9 F 70 18 116/72 93 L Weight Admit Weight 205 lb Weight 205 lb I&O: 02/14/19 02/15/19 02/16/19 06:59 06:59 06:59 Intake Total 1200 500 Balance 1200 500 Result Diagrams: 02/11/19 11:16 02/14/19 05:38 Additional Labs: Accuchecks 02/15/19 02/14/19 02/14/19 06:07 16:43 12:13 POC Glucose 113 H 124 H 93 Phys Exam - Physical Examination Constitutional: NAD obese HEENT: PERRLA, moist MMs, sclera anicteric Neck: no nodes, no JVD, supple Respiratory: no wheezing, no rales, no rhonchi Cardiovascular: RRR, no significant murmur, no rub Gastrointestinal: soft, non-tender, no distention, positive bowel sounds Musculoskeletal: pulses present, edema present Dx/Plan (1) Cellulitis Code(s): L03.90 - CELLULITIS, UNSPECIFIED Status: Acute (2) Abdominal pain Code(s): R10.9 - UNSPECIFIED ABDOMINAL PAIN Status: Acute (3) Diarrhea Code(s): R19.7 - DIARRHEA, UNSPECIFIED Status: Acute - Plan * s/p colonoscopy * monitor H&H for now, labs in AM * patient states she had some diarrhea in the AM, abd pain is still present but a bit better * possible CT if pain worsens, monitor for now
--- NOTE | 2019-02-15 12:49 | PRG ---
DATE OF SERVICE: 02/15/2019 This is a cross coverage for Dr. Onesimo Pickard. SUBJECTIVE: Ms. Sarah Olea is a very pleasant 73-year-old female hospitalized with chronic diarrhea. Apparently, she has had diarrhea mainly more than one month. Stools studies are negative. She had a colonoscopy with polypectomy done by Dr. Onesimo Pickard yesterday. She had multiple polyps removed. There is no colitis seen as per Dr. Onesimo Pickard. The patient continued to have diarrhea. She has had three stools through the night and this morning. She also had some abdominal soreness, diffuse. She is tolerating diet. There is no nausea, no vomiting. MEDICATIONS: List reviewed which includes Questran, pantoprazole, Trulicity, Lomotil, . PHYSICAL EXAMINATION: GENERAL: She is obese, appears comfortable, in no acute distress. VITAL SIGNS: Temperature 97.6 degrees Fahrenheit, pulse is 81, blood pressure 117/76. HEENT: Conjunctivae clear. CARDIOVASCULAR: First and second heart sounds heard. LUNGS: Clear to auscultation. ABDOMEN: Soft. Abdomen is flabby. Abdomen is minimally tender diffusively. There is no rebound or guarding. No organomegaly or masses. LABORATORY DATA: Show CBC, this is from 02/11/2019; WBC 9700, hemoglobin 13.7, hematocrit 41.3. Chem panel nothing done today, yesterday normal BUN, normal potassium, blood sugar today 113. CLINICAL IMPRESSION: 73-year-old female with chronic diarrhea with negative workup so far. She has had a colonoscopy and polypectomy and also random biopsies. The biopsies are pending at the present time. She is on Questran and Lomotil. PLAN: 1. Continue the current treatment. 2. May consider abdominal CAT scan because of negative endoscopic studies and chronic diarrhea. Job ID: [id number] [facility]
[2019-02-15] MEDS: diphenhydrAMINE 25 MG CAP PO SCH (20:34)
[2019-02-16 04:59] LABS: Anion Gap 10 mmol/L (10-20); BUN (Urea Nitrogen) 15 mg/dL (9.8-20.1); Calc. Creatinine Clearance 88 mL/min (70-130); Calcium 8.2 mg/dL (7.8-10.44); Carbon Dioxide 19 mmol/L (23-31); Chloride 111 mmol/L (98-107); Estimated GFR-MDRD 66; Glucose 111 mg/dL (83-110); Potassium 4.4 mmol/L (3.5-5.1); Sodium 136 mmol/L (136-145)
[2019-02-16] MEDS: Levothyroxine Sodium 25 MCG TAB PO SCH (05:27)
[2019-02-16 05:34] LABS: Band 7 % (5-11); Eosinophils 21 % (0-10); Lymphocytes 34 % (21-51); MDiff Complete? YES; Mean Corpuscular HGB CONC 33.7 g/dL (32.0-36.0); Mean Corpuscular Hemoglobin 30.8 pg (27.0-31.0); Mean Corpuscular Volume 91.4 fL (78.0-98.0); Mean Platelet Volume 9.4 fL (7.4-10.4); Monocytes 6 % (0-10); Neutrophil 30 % (42-75); Platelet Count 81 thou/uL (130-400); Platelet Morphology Comment Appears Decreased; RBC Distribution Width 15.3 % (11.5-14.5); Reactive Lymphocytes 2 % (0-10); Red Blood Cell (RBC) Count 4.22 mill/uL (4.20-5.40); White Blood Cell (WBC) Count 10.9 thou/uL (4.8-10.8)
[2019-02-16] MEDS: Ondansetron ODT 4 MG TAB PO SCH ×4 (09:28→20:40)
[2019-02-16] MEDS: hydrOXYzine 25 MG TAB PO SCH ×4 (09:28→20:40)
[2019-02-16] MEDS: Lactinex Tablet PO SCH (09:28)
[2019-02-16] MEDS: Aspirin 81 mg Enteric Coated Tablet PO SCH (09:28)
[2019-02-16] MEDS: Potassium Chloride 20 MEQ TAB PO SCH ×2 (09:28→18:12)
[2019-02-16] MEDS: Pantoprazole 40 MG VIAL IVP SCH (09:29)
[2019-02-16] MEDS: Cholestyramine/Aspartame 4 gm Packet PO SCH ×2 (10:11→20:41)
[2019-02-16] MEDS: Diphenoxylate HCl/Atropine Tablet PO PRN (18:13)
[2019-02-16] MEDS: diphenhydrAMINE 25 MG CAP PO SCH (20:40)
[2019-02-17] MEDS: Levothyroxine Sodium 25 MCG TAB PO SCH (05:04)
[2019-02-17 07:08] LABS: Hemoglobin 14.1 g/dL (12.0-16.0); Mean Corpuscular HGB CONC 34.2 g/dL (32.0-36.0); Mean Corpuscular Hemoglobin 31.1 pg (27.0-31.0); Mean Corpuscular Volume 91.1 fL (78.0-98.0); Mean Platelet Volume 9.5 fL (7.4-10.4); Platelet Count 92 thou/uL (130-400); RBC Distribution Width 15.7 % (11.5-14.5); Red Blood Cell (RBC) Count 4.52 mill/uL (4.20-5.40); White Blood Cell (WBC) Count 13.2 thou/uL (4.8-10.8)
[2019-02-17 07:15] LABS: Anion Gap 12 mmol/L (10-20); BUN (Urea Nitrogen) 14 mg/dL (9.8-20.1); Calc. Creatinine Clearance 84 mL/min (70-130); Calcium 8.7 mg/dL (7.8-10.44); Carbon Dioxide 21 mmol/L (23-31); Chloride 109 mmol/L (98-107); Estimated GFR-MDRD 63; Glucose 99 mg/dL (83-110); Sodium 137 mmol/L (136-145)
[2019-02-17 08:07] LABS: Band 5 % (5-11); Eosinophils 23 % (0-10); Lymphocytes 33 % (21-51); MDiff Complete? YES; Metamyelocyte 1 % (0-0); Monocytes 6 % (0-10); Myelocyte 1 % (0-0); Neutrophil 28 % (42-75); Platelet Morphology Comment Appears Decreased; RBC Morphology Normal; Reactive Lymphocytes 1 % (0-10)
[2019-02-17] MEDS: Aspirin 81 mg Enteric Coated Tablet PO SCH (09:51)
[2019-02-17] MEDS: hydrOXYzine 25 MG TAB PO SCH ×4 (09:51→20:41)
[2019-02-17] MEDS: Lactinex Tablet PO SCH (09:51)
[2019-02-17] MEDS: Pantoprazole 40 MG VIAL IVP SCH (09:52)
[2019-02-17] MEDS: Ondansetron ODT 4 MG TAB PO SCH ×4 (09:52→20:41)
[2019-02-17] MEDS: Potassium Chloride 20 MEQ TAB PO SCH ×2 (09:59→16:50)
--- NOTE | 2019-02-17 11:26 | PRG ---
DATE OF SERVICE: 02/16/2019 This is a cross coverage for Dr. Onesimo Pickard. SUBJECTIVE: This is a 73-year-old , hospitalized with chronic diarrhea and weight loss. The patient's stool studies are negative. The patient has multiple polyps. She had a biopsy of the colon for rule out microscopic colitis. The biopsy is pending. She is actually doing better. She has had only one stool today so far. She has multiple, 5 stools yesterday. She complains of abdominal pain, which is mild. She appears very comfortable. No nausea, no vomiting. PHYSICAL EXAMINATION: GENERAL: She is obese, appears comfortable. VITAL SIGNS: Stable. Afebrile. Pulse is 83, blood pressure 124/76. CARDIOVASCULAR: Within normal limits. LUNGS: Within normal limits. ABDOMEN: Soft and distended. Abdomen is mildly tender. No rebound or guarding. IMPRESSION: 1. Chronic diarrhea, negative workup. . Recommend continue present treatment. 2. We will await colonic biopsy to decide future treatment. Job ID: [id number] [facility]
[2019-02-17] MEDS: Cholestyramine/Aspartame 4 gm Packet PO SCH ×2 (12:16→21:41)
--- NOTE | 2019-02-17 13:34 | CT ---
ABDOMEN CT WITH CONTRAST PELVIC CT WITH CONTRAST: Date: 02/17/19 HISTORY: Diarrhea x1 month. COMPARISON: None. FINDINGS: ABDOMEN CT: Lung bases are clear. Heart size is normal. No significant pericardial fluid. Visualized aorta has a normal caliber. No periaortic fat stranding. Portal vein is patent. Gallbladder is unremarkable. Liver, spleen, pancreas, and adrenal glands have appropriate attenuation and enhancement. There is mi ld splenomegaly with a craniocaudal dimension of 15.5 cm. There appears to be a parapelvic cyst in th e lower pole of the left kidney. There is a nonobstructing 2 mm calcification. Bilaterally, no hydron ephrosis or perinephric fat stranding. Bilateral ureters have a normal caliber. No hydroureter, periu reteral fat stranding, or ureterolithiasis. There are nonspecific borderline enlarged gastrohepatic and peripancreatic lymph nodes. The borderlin e gastrohepatic lymph node measures 1.2 x 0.9 cm. Electrical Assistant peripancreatic lymph node measures 1 .7 x 1.1 cm. No mesenteric mass, lymphadenopathy, free air, or free fluid. There are a few scattered mesenteric ly mph nodes with a trace amount of fluid in both paracolic gutters. Gastric mucosa, duodenum, and multiple normal caliber small bowel loops are noted. Ileocecal junction is normal. Scattered fecal material in a nondistended, nondilated colon. Diverticulosis in sigmoid c olon. No diverticulitis. CT PELVIS: No mass, lymphadenopathy, free air, or free fluid. Unremarkable urinary bladder. No lytic or blastic lesions within the osseous structures. IMPRESSION: No acute abnormality in the abdomen or pelvis. POS: [facility]
[2019-02-17 18:07] LABS: Neutral Fats And/Or Soaps Normal (.)
--- NOTE | 2019-02-17 19:41 | PRG ---
DATE OF SERVICE: 02/17/2019 REASON FOR CONSULTATION: Diarrhea. SUBJECTIVE: The patient states that she continues to have semi-solid liquid bowel movements with having approximately 3 to 6 of these bowel movements per day. She denies any melena or hematochezia associated with this diarrhea. Otherwise, she denies any nausea, vomiting, fevers, chills, hematemesis, abdominal pain, constipation, dysphagia, or odynophagia. OBJECTIVE: VITAL SIGNS: Temperature 97.4, pulse 78, blood pressure 112/77, respiratory rate 14, and satting 96% on room air. GENERAL: The patient is lying in bed, in no acute distress. Alert and oriented x4. CARDIOVASCULAR: Regular rate and rhythm with 3/6 systolic murmur best heard at the left lower sternal border in the midclavicular line. RESPIRATORY: Clear to auscultation bilaterally. ABDOMEN: Normoactive bowel sounds. Soft, nontender. [id number] abdominal distention. EXTREMITIES: No cyanosis, clubbing, or edema. LABORATORY DATA: CBC with a white blood cell count of 13.2, hemoglobin 14.1, hematocrit 41.2, and platelets 92. Chemistry with a sodium of 137, potassium 5.0, chloride 109, CO2 of 21, BUN 14, creatinine 0.88, and glucose 99. Infectious stool studies thus far were negative for Campylobacter, Shigella, E coli with Shigella toxin, Clostridium difficile with stool culture on February 11, 2019 showing normal enteric melva. However, stool lactoferrin obtained on February 14, 2019 was positive for elevated lactoferrin. IMAGING DATA: CT of the abdomen and pelvis was obtained on February 17, 2019, which showed nonspecific enlarged gastrohepatic, peripancreatic, and mesenteric lymph nodes scattered throughout the abdomen, but otherwise the study was read as no acute abnormality of the abdomen and pelvis. ASSESSMENT AND PLAN: The patient is a 73-year-old female with past medical history of diabetes, recurrent urinary tract infections, urinary incontinence, obesity, hypertension, hypothyroidism, hyperlipidemia, and vitamin D deficiency, Guillain-[place] syndrome, breast cancer, and more recently prepatellar bursitis with left lower extremity cellulitis status post antibiotics presenting with continued diarrhea. Diarrhea. The patient has a longstanding history of diarrhea, where she has been having approximately 3 to 6 liquid bowel movements per day that have been present for at least the last 3 to 4 weeks. The appearance of this diarrhea coincided with the administration of oral antibiotics when discharged from a prior hospitalization with oral antibiotics. However, since discontinuation of the antibiotic therapy/regimen, she has had continued diarrhea. Infectious stool studies have been negative for C diff, Campylobacter, E coli with a stool culture negative as well. She underwent colonoscopy on February 14, 2019, with random colon biopsies negative for microscopic colitis. CT of the abdomen and pelvis was obtained on February 17, 2019, which did not show any acute abnormalities as well except for some nonspecific lymphadenopathy with surrounding the gut. She did have some evidence of erosive duodenitis on the upper endoscopy, which might be indicative of increased acid output, but she is currently on PPI therapy, which should be helping with this particular condition. At this point in time, the etiology of her diarrhea is largely unknown, but given the lower sensitivity and specificity of infectious stool studies, repeat infectious stool studies could be considered Cyclospora and ova and parasites are still pending at this time, which may yield a possible diagnosis. However, she is now having an elevated white blood cell count as well as a peripheral eosinophilia, which is also concerning for parasitic type process and she may benefit from antibiotic therapy to specifically target these areas. RECOMMENDATIONS: 1. Would obtain ova and parasites for this patient given the peripheral eosinophilia and elevated white blood cell count with continued diarrhea. 2. Would start the patient empirically on metronidazole 500 t.i.d. for coverage of C diff as well as possible parasitic process. 3. Would continue to monitor the patient clinically for worsening/improving diarrhea. 4. Would continue Lomotil as needed for symptomatic control of her diarrhea. 5. Would continue PPI daily for erosive duodenitis. Adenomatous polyps of the colon. During her colonoscopy performed on February 14, 2019, she had findings consistent with multiple colonic polyps within the ascending, descending, and sigmoid colons measuring approximately 3 to 7 mm in size. Pathology results yielded multiple tubular adenomas as well as the presence of a tubulovillous adenoma within these areas without any evidence of high-grade dysplasia or malignancy. Given no stated family history of colon polyps or colon cancer and with the polyps removed during this last colonoscopy, I would recommend a repeat colonoscopy in at least three years, possibly sooner given the relatively poor prep seen during this most recent colonoscopy. Recommendations; we will continue to monitor the patient while inpatient and repeat colonoscopy as an outpatient in the GI Clinic. We will continue to follow. Please call with any questions. Job ID: [id number]
[2019-02-17] MEDS: metroNIDAZOLE 500 MG TAB PO SCH (20:41)
[2019-02-17] MEDS: diphenhydrAMINE 25 MG CAP PO SCH (20:41)
[2019-02-18] MEDS: Levothyroxine Sodium 25 MCG TAB PO SCH (05:17)
[2019-02-18 07:11] LABS: #Basophils 0.1 thou/uL (0.0-0.2); #Eosinphils 1.6 thou/uL (0.0-0.7); #Lymphocytes 2.7 thou/uL (1.20-3.40); #Monocytes 0.9 thou/uL (0.11-0.59); #Neutrophils 4.2 thou/uL (1.40-6.50); %Basophils 0.6 % (0.0-1.0); %Lymphocytes 28.4 % (21.0-51.0); %Monocytes 9.8 % (0.0-10.0); %Neutrophils 44.1 % (42.0-75.0); Hemoglobin 13.4 g/dL (12.0-16.0); Mean Corpuscular HGB CONC 33.5 g/dL (32.0-36.0); Mean Corpuscular Hemoglobin 30.2 pg (27.0-31.0); Mean Corpuscular Volume 89.9 fL (78.0-98.0); Mean Platelet Volume 9.2 fL (7.4-10.4); Platelet Count 94 thou/uL (130-400); RBC Distribution Width 15.3 % (11.5-14.5); Red Blood Cell (RBC) Count 4.45 mill/uL (4.20-5.40); White Blood Cell (WBC) Count 9.4 thou/uL (4.8-10.8)
--- NOTE | 2019-02-18 09:26 | RAD ---
2 VIEW CHEST: Date: 02/18/19 INDICATION: Emergency exam. History of persistent diarrhea. Reference made to 09/28/14 exam. FINDINGS: There is bibasilar density present. The cardiac silhouette and pulmonary vasculature are prominent. N o pneumothorax. IMPRESSION: Findings favor CHF with associated pulmonary edema. Recommend follow-up to resolution. POS: [facility]
[2019-02-18] MEDS: Potassium Chloride 20 MEQ TAB PO SCH ×2 (09:43→17:51)
[2019-02-18] MEDS: Lactinex Tablet PO SCH (09:44)
[2019-02-18] MEDS: hydrOXYzine 25 MG TAB PO SCH ×4 (09:44→20:48)
[2019-02-18] MEDS: Aspirin 81 mg Enteric Coated Tablet PO SCH (09:44)
[2019-02-18] MEDS: Ondansetron ODT 4 MG TAB PO SCH ×3 (09:44→17:48)
[2019-02-18] MEDS: Pantoprazole 40 MG VIAL IVP SCH (09:44)
[2019-02-18] MEDS: metroNIDAZOLE 500 MG TAB PO SCH ×3 (09:44→20:48)
[2019-02-18] MEDS: Cholestyramine/Aspartame 4 gm Packet PO SCH ×2 (11:33→21:27)
[2019-02-18] MEDS ORDERED: Potassium Chloride 10 MEQ TAB PO SCH (17:45)
[2019-02-18] MEDS ORDERED: Ondansetron ODT 4 MG TAB PO PRN (19:23)
--- NOTE | 2019-02-18 20:01 | PRG ---
DATE OF SERVICE: 02/18/2019 REASON FOR CONSULTATION: Diarrhea. SUBJECTIVE: The patient states that she has had approximately 3 semi-solid to formed bowel movements over the last 24 hours. Since institution of the antibiotic therapy, she currently denies any nausea, vomiting, fevers, chills, GI bleeding, abdominal pain, or constipation. OBJECTIVE: VITAL SIGNS: Temperature 98.1, pulse 82, blood pressure 123/76, respiratory rate 16, saturating 96% on room air. GENERAL: The patient was lying in bed, in no acute distress. Alert and oriented x4. CARDIOVASCULAR: Regular rate and rhythm with 3/6 systolic murmur best heard at the left lower sternal border at the midclavicular line. RESPIRATORY: Clear to auscultation bilaterally. ABDOMEN: Normoactive bowel sounds. Soft, nontender, nondistended. EXTREMITIES: No cyanosis, clubbing, or edema. LABORATORY DATA: CBC with a white blood cell count of 9.4, hemoglobin 13.4, hematocrit 40, platelets 94. Cyclospora, ova and parasites, stool studies are still pending at this time. IMAGING DATA: No current GI imaging is available for review. ASSESSMENT AND PLAN: The patient is a 73-year-old female with past medical history of diabetes, recurrent urinary tract infections, urinary incontinence, obesity, hypertension, hypothyroidism, hyperlipidemia, vitamin D deficiency, Guillain-[place] syndrome, breast cancer, and more recently prepatellar bursitis with left lower extremity cellulitis, presenting with chronic diarrhea. 1. Chronic diarrhea. The patient initially presented with diarrhea that had been present since her prior hospitalization 3 to 4 weeks ago and coincided with the administration of oral antibiotics. During this admission, infectious stool studies were negative for C diff, Campylobacter, E coli, and stool culture with Cyclospora, ova and parasites still pending at this time. She underwent colonoscopy on February 14, 2019, with random colon biopsies negative for microscopic colitis or other overt pathology. CT of the abdomen and pelvis was obtained on February 17, 2019, which did not show any acute abnormalities except for some nonspecific lymphadenopathy in the mesentery. Given her continued diarrhea and recent antibiotic use, it was concerning for the presence of either C difficile colitis versus a possible parasite that she picked up as an outpatient, for which she was ultimately started on empiric metronidazole. Since institution of oral metronidazole 3 times daily, she has had significant improvement in the frequency of her diarrhea with no more formed stools and improvement in her clinical status. At this time, the metronidazole could be covering either a parasite or Clostridium difficile, but it is unclear at this time as her stool studies have been negative thus far. Given her elevated white blood cell count as well as the peripheral eosinophilia, again C diff versus parasitic process is higher in the differential (although I would favor C difficile). RECOMMENDATIONS: 1. Would follow up on the ova and parasites, Cyclospora, stool studies for evaluation of the etiology of her diarrhea. 2. Would continue metronidazole 500 t.i.d. for coverage of C diff as well as a parasitic process and continue this therapy for a total of 14 days. 3. Continue to monitor the patient clinically for worsening/improving diarrhea. 4. We will continue Lomotil as needed. 5. We will continue PPI daily for erosive duodenitis. With improvement of her diarrhea from a GI standpoint, she could be discharged to home with followup in the GI Clinic. We will continue to follow peripherally at this time. Please call with any questions. Job ID: [id number]
[2019-02-18] MEDS: diphenhydrAMINE 25 MG CAP PO SCH (20:48)
[2019-02-19] MEDS: Levothyroxine Sodium 25 MCG TAB PO SCH (06:01)
[2019-02-19] MEDS ORDERED: Potassium Chloride 10 MEQ TAB PO SCH (08:00)
[2019-02-19 08:19] VITALS: BP 114/73; TEMP 97.6
[2019-02-19] MEDS: Aspirin 81 mg Enteric Coated Tablet PO SCH (08:24)
[2019-02-19] MEDS: hydrOXYzine 25 MG TAB PO SCH (08:24)
[2019-02-19] MEDS: metroNIDAZOLE 500 MG TAB PO SCH (08:24)
[2019-02-19] MEDS: Pantoprazole 40 MG VIAL IVP SCH (08:24)
[2019-02-19] MEDS: Lactinex Tablet PO SCH (08:24)
[2019-02-19 15:30] LABS: Ref Lab Test Ordered FECAL ELASTASE; Reference Lab Name LABCORP
[2019-02-25 12:09] LABS: Routine O & P Final report (.)
== END 2019-02-19 10:14 | disposition home or self-care (01) | DRG 392 ==
LOC: T4-A 10:02
PROVIDERS: ADMIT Specialist; ATTEND Specialist
PROC: 0DB98ZX Excision of Duodenum, Via Natural or Artificial Opening Endoscopic, Diagnostic (ICD-10-PCS; principal; 2019-02-14)
PROC: 0DB68ZX Excision of Stomach, Via Natural or Artificial Opening Endoscopic, Diagnostic (ICD-10-PCS; 2019-02-14)
PROC: 0DBE8ZX Excision of Large Intestine, Via Natural or Artificial Opening Endoscopic, Diagnostic (ICD-10-PCS; 2019-02-14)
PROC: 0DBK8ZZ Excision of Ascending Colon, Via Natural or Artificial Opening Endoscopic (ICD-10-PCS; 2019-02-14)
PROC: 0DBN8ZZ Excision of Sigmoid Colon, Via Natural or Artificial Opening Endoscopic (ICD-10-PCS; 2019-02-14)
DX: K52.9 Noninfective gastroenteritis and colitis, unspecified (principal); Z68.41 Body mass index [BMI] 40.0-44.9, adult; L03.116 Cellulitis of left lower limb; N39.0 Urinary tract infection, site not specified; E86.9 Volume depletion, unspecified; E11.9 Type 2 diabetes mellitus without complications; E66.9 Obesity, unspecified; E78.5 Hyperlipidemia, unspecified; R32 Unspecified urinary incontinence; K57.90 Diverticulosis of intestine, part unspecified, without perforation or abscess without bleeding; K63.5 Polyp of colon; E03.9 Hypothyroidism, unspecified; E55.9 Vitamin D deficiency, unspecified; I10 Essential (primary) hypertension; E86.0 Dehydration; Z87.440 Personal history of urinary (tract) infections; Z86.14 Personal history of Methicillin resistant Staphylococcus aureus infection; Z85.3 Personal history of malignant neoplasm of breast; Z90.11 Acquired absence of right breast and nipple; Z90.710 Acquired absence of both cervix and uterus
CPT/HCPCS: 36415; 36416; 71046; 74177; 80048; 80053; 80061; 81001; 82705; 82947; 83036; 83630; 83735; 84100; 84443; 85025; 87015; 87040; 87045; 87046; 87077; 87086; 87177; 87186; 87206; 87324; 87449; 87899; 88305; 88312; C9113; J2250; J2405; J2704; J3475; Q0162; Q0163

== ENCOUNTER 2019-03-19 12:10 | Outpatient (CLI) | payer MEDICARE, OTHER ==
--- NOTE | 2019-03-19 16:12 | RAD ---
THORACIC SPINE 3 VIEWS: Date: 03/19/19 HISTORY: Thoracic pain. FINDINGS: Thoracic vertebra maintain height and alignment. There are moderate degenerative changes with anterio r and lateral osteophytes at multiple levels. No evidence of acute compression deformity. No lytic or blastic process. IMPRESSION: Moderate degenerative changes of thoracic spine. POS: [facility]
--- NOTE | 2019-03-19 16:14 | RAD ---
CERVICAL SPINE 7 VIEWS: Date: 03/19/19 HISTORY: Neck pain. Myalgia of head. FINDINGS: There are moderate degenerative changes of the cervical spine. Loss of disc space seen at all levels below C3. Disc space loss is most pronounced at C4-5, C5-6, and C6-7. Anterior osteophytes are seen a t these levels and there is posterior spondylitic change. Slight posterolisthesis at C4-5 and C5-6 me asures in the 2-3 mm range. Mild facet hypertrophy. Mild foraminal encroachment due to uncinate hyper trophy at C4-5 and C5-6. IMPRESSION: Moderate degenerative changes of the cervical spine as described. POS: [facility]
== END 2019-03-19 12:11 | disposition home or self-care (01) ==
LOC: BICRAD 12:10
PROVIDERS: ATTEND Specialist
DX: M79.18 Myalgia, other site (principal); M54.6 Pain in thoracic spine; M47.812 Spondylosis without myelopathy or radiculopathy, cervical region; M47.814 Spondylosis without myelopathy or radiculopathy, thoracic region
CPT/HCPCS: 72052; 72072

== ENCOUNTER 2019-06-11 09:55 | Outpatient (CLI) | payer MEDICARE, OTHER ==
--- NOTE | 2019-06-11 11:59 | ULT ---
ABDOMINAL ULTRASOUND: Date: 06/11/19 INDICATION: Ascites. FINDINGS: No evidence of significant ascites seen in the abdomen on this study. The gallbladder shows thickened well and there are numerous echogenic gallstones present. Technologis t describes a negative Antonio's sign. Common duct is normal caliber at 4 mm. Visualized aorta and IVC unremarkable. Pancreas is mildly heterogeneous and appears prominent by ultrasound. The tail of the pancreas is obs cured and portions of the head of the pancreas obscured, making this a suboptimal evaluation. Correlation made to a CT of 02/17/19 which showed unremarkable appearing pancreas. The liver is mildly enlarged, measuring up to 20 cm. The spleen is enlarged, measuring 15 cm. The kidneys are imaged and appear unremarkable. Small left renal cystic lesion is seen, measuring briseyda roximately 1 cm. IMPRESSION: 1. Cholelithiasis with thickened gallbladder wall. 2. Hepatosplenomegaly. 3. Small left renal cyst. POS: [facility]
== END 2019-06-11 09:56 | disposition home or self-care (01) ==
LOC: BICULT 09:55
PROVIDERS: ATTEND Specialist
DX: R18.8 Other ascites (principal); K80.20 Calculus of gallbladder without cholecystitis without obstruction; R16.2 Hepatomegaly with splenomegaly, not elsewhere classified; N28.1 Cyst of kidney, acquired
CPT/HCPCS: 93975

== ENCOUNTER 2020-12-07 14:54 | Outpatient (CLI) | payer MEDICARE, OTHER | END 2020-12-07 14:55 | disposition home or self-care (01) | LOC: BICMAMMO 14:54 | PROVIDERS: ATTEND Specialist | DX: Z12.31 Encounter for screening mammogram for malignant neoplasm of breast (principal); Z85.3 Personal history of malignant neoplasm of breast; Z91.89 Other specified personal risk factors, not elsewhere classified | CPT/HCPCS: 77063; 77067 ==